=== PATIENT | male | born 1940 | race Caucasian/White ===

== ENCOUNTER 2018-04-14 13:33 | Inpatient (IN) | payer MEDICARE ==
[~2018-04-14] VITALS: Ht 172.7 cm; Wt 82.9 kg
[~2018-04-14 13:33] MED LIST: ALLO100 PO; APIX5TAB PO; ATOR20TA PO; ATOR20TA15 PO; CARV6.25 PO; COLA100C3 PO; FURO40TA PO; IRBE150T49 PO; SPIR25 PO
[2018-04-14 13:45] VITALS: BP 110/57; PULSE 103; RESP 25; TEMP 97.8; O2SAT 98
[2018-04-14] MEDS ORDERED: TORS20TA PO (13:57)
[2018-04-14] MEDS ORDERED: CHOL1TAB42 (13:57)
--- NOTE | 2018-04-14 14:00 | PD ---
HPI Chief Complaint: General Weakness Time Seen by Provider: 13:50 Travel History International Travel<30 days: No Contact w/Intl Traveler<30days: No Traveled to known affect area: No History of Present Illness HPI 77yo M with PMH of HTN, CVA with residual gait disturbance, cholecystectomy with complications here with c/o generalized weakness for 3 days. Pt has not been feeling well and had chills. [place] sob when he had chills but not right now. Denies any actual fever but axillary temp by EVAC was 100.4F. Denies any chest pain, sob, vomiting, abdominal pain, focal weakness or numbness. Pt has been feeling nauseous and not eating much. Pt had systolic in the 90s and was given 1000cc of IVF by EVAC and BP improved. PFSH Past Medical History Hx Anticoagulant Therapy: Yes (Eliquis) Atrial Fibrillation: Yes Anxiety: No Depression: No Heart Rhythm Problems: Yes (A-FIB) Cancer: No Cardiac Catheterization: Yes Cardiovascular Problems: Yes High Cholesterol: Yes Chemotherapy: No Chest Pain: No Congestive Heart Failure: Yes Cirrhosis: Yes Cerebrovascular Accident: Yes Diabetes: Yes Patient Takes Glucophage: No Diminished Hearing: No Endocrine: No Gastrointestinal Disorders: No Gout: Yes Genitourinary: No Hepatitis: No Hypertension: Yes Immune Disorder: No Implanted Vascular Access Dvce: No Medical other: Yes (stroke 3 or 4 years ago and with balance issues now) Musculoskeletal: No Neurologic: Yes Psychiatric: No Reproductive: No Respiratory: Yes (acute resp failure secondary to right pleural effusion ) Integumentary: Yes (jaundice with liver issues (cirrhosis dr. reynoso)) Immunizations Current: Yes Radiation Therapy: No Seizures: No Sickle Cell Disease: No Thyroid Disease: No Influenza Vaccination: No Past Surgical History Abdominal Surgery: Yes (cholecystectomy, exploratory, abdominal wall access drain/wound vac ) AICD: No Arteriovenous Shunt: No Cardiac Surgery: No Cholecystectomy: Yes Ear Surgery: No Endocrine Surgery: No Eye Surgery: Yes (bilateral cateracts) Genitourinary Surgery: No Insulin Pump: No Joint Replacement: No Neurologic Surgery: No Oral Surgery: Yes (tooth extractions) Pacemaker: No Thoracic Surgery: No Tonsillectomy: Yes Other Surgery: Yes Social History Alcohol Use: Yes (3-4 beers 2xs per week) Tobacco Use: No (Quit 1978) Substance Use: No Allergies-Medications (Allergen,Severity, Reaction): Coded Allergies: No Known Allergies (Unverified , 06/23/16) Reported Meds & Prescriptions Reported Meds & Active Scripts Active Reported Vitamin D-3 (Cholecalciferol) 2,000 Unit Tab Torsemide 20 Mg Tab 20 Mg PO DAILY Atorvastatin (Atorvastatin Calcium) 20 Mg Tab 20 Mg PO DAILY Aldactone (Spironolactone) 25 Mg Tab 25 Mg PO DAILY Avapro (Irbesartan) 150 Mg Tab 150 Mg PO DAILY Coreg (Carvedilol) 6.25 Mg Tab 25 Mg PO BID Eliquis (Apixaban) 5 Mg Tab 5 Mg PO BID Zyloprim (Allopurinol) 100 Mg Tab 300 Mg PO DAILY Review of Systems Except as stated in HPI: all other systems reviewed are Neg Physical Exam Narrative GENERAL: 77yo M in mild distress. SKIN: Focused skin assessment warm/dry. HEAD: Atraumatic. Normocephalic. EYES: Pupils equal and round. No scleral icterus. No injection or drainage. ENT: No nasal bleeding or discharge. Mucous membranes pink and moist. NECK: Trachea midline. No JVD. CARDIOVASCULAR: Regular rate and rhythm. No murmur appreciated. RESPIRATORY: No accessory muscle use. Clear to auscultation. Breath sounds equal bilaterally. GASTROINTESTINAL: Abdomen soft, non-tender, nondistended. No rebound tenderness or guarding. MUSCULOSKELETAL: No obvious deformities. No clubbing. No cyanosis. No edema. NEUROLOGICAL: Awake and alert. No obvious cranial nerve deficits. Motor grossly within normal limits in all extremities. Sensation intact. Normal speech. PSYCHIATRIC: Appropriate mood and affect; insight and judgment normal. Data Data Last Documented VS Vital Signs Date Time Temp Pulse Resp B/P (MAP) Pulse Ox O2 Delivery O2 Flow Rate FiO2 04/14/18 13:45 97.8 103 25 110/57 (74) 98 Orders Orders Blood Culture (04/14/18 13:50) Complete Blood Count With Diff (04/14/18 13:50) Basic Metabolic Panel (Bmp) (04/14/18 13:50) Prothrombin Time / Inr (Pt) (04/14/18 13:50) Act Partial Throm Time (Ptt) (04/14/18 13:50) Electrocardiogram (04/14/18 ) Chest, Single Ap (04/14/18 ) Lactic Acid Sepsis Protocol (04/14/18 13:50) Urinalysis - C+S If Indicated (04/14/18 13:50) Thyroid Stimulating Hormone (04/14/18 13:50) Magnesium (Mg) (04/14/18 13:50) Sodium Chlor 0.9% 1000 Ml Inj (Ns 1000 M (04/14/18 15:30) Vancomycin Inj (Vancomycin Inj) (04/14/18 15:45) Piperacil-Tazo 2.25 Gm Premix (Zosyn 2.2 (04/14/18 15:45) Admit Order (Ed Use Only) (04/14/18 16:19) Admit To Inpatient (04/14/18 ) Vital Signs (Adult) Q4H (04/14/18 16:21) Activity Oob Ad Chaya (04/14/18 16:21) Intake + Output DOV.QSHIFT (04/14/18 16:21) Diet Heart Healthy (04/14/18 Dinner) Sodium Chloride 0.9% Flush (Ns Flush) (04/14/18 16:30) Sodium Chloride 0.9% Flush (Ns Flush) (04/14/18 21:00) Comprehensive Metabolic Panel (04/15/18 06:00) Complete Blood Count With Diff (04/15/18 06:00) Naloxone Inj (Narcan Inj) (04/14/18 16:30) Docusate Sodium-Senna (Anjali-Colace) (04/14/18 21:00) Magnesium Hydroxide Liq (Milk Of Magnesi (04/14/18 16:30) Sennosides (Senokot) (04/14/18 16:30) Bisacodyl Supp (Dulcolax Supp) (04/14/18 16:30) Lactulose Liq (Lactulose Liq) (04/14/18 16:30) Inpatient Certification (04/14/18 ) Labs Laboratory Tests Test 04/14/18 13:54 04/14/18 14:09 04/14/18 16:24 White Blood Count 5.3 TH/MM3 Red Blood Count 2.93 MIL/MM3 Hemoglobin 8.9 GM/DL Hematocrit 26.9 % Mean Corpuscular Volume 91.6 FL Mean Corpuscular Hemoglobin 30.3 PG Mean Corpuscular Hemoglobin Concent 33.1 % Red Cell Distribution Width 15.3 % Platelet Count 94 TH/MM3 Mean Platelet Volume 8.3 FL Neutrophils (%) (Auto) 97.4 % Lymphocytes (%) (Auto) 1.5 % Monocytes (%) (Auto) 0.7 % Eosinophils (%) (Auto) 0.2 % Basophils (%) (Auto) 0.2 % Neutrophils # (Auto) 5.1 TH/MM3 Lymphocytes # (Auto) 0.1 TH/MM3 Monocytes # (Auto) 0.0 TH/MM3 Eosinophils # (Auto) 0.0 TH/MM3 Basophils # (Auto) 0.0 TH/MM3 CBC Comment AUTO DIFF Differential Comment AUTO DIFF CONFIRMED Toxic Granulation 1+ Dohle Bodies PRESENT Platelet Estimate LOW Platelet Morphology Comment NORMAL Prothrombin Time 14.1 SEC Prothromb Time International Ratio 1.4 RATIO Activated Partial Thromboplast Time 37.2 SEC Blood Urea Nitrogen 56 MG/DL Creatinine 3.04 MG/DL Random Glucose 134 MG/DL Calcium Level 7.5 MG/DL Magnesium Level 1.7 MG/DL Sodium Level 134 MEQ/L Potassium Level 3.8 MEQ/L Chloride Level 105 MEQ/L Carbon Dioxide Level 18.4 MEQ/L Anion Gap 11 MEQ/L Estimat Glomerular Filtration Rate 20 ML/MIN Lactic Acid Level 3.4 mmol/L 1.7 mmol/L Thyroid Stimulating Hormone 3rd Gen 1.200 uIU/ML Urine Color YELLOW Urine Turbidity HAZY Urine pH 5.0 Urine Specific [place] 1.011 Urine Protein 30 mg/dL Urine Glucose (UA) NEG mg/dL Urine Ketones NEG mg/dL Urine Occult Blood NEG Urine Nitrite NEG Urine Bilirubin NEG Urine Urobilinogen LESS THAN 2.0 MG/DL Urine Leukocyte Esterase NEG Urine RBC LESS THAN 1 /hpf Urine WBC 1 /hpf Urine Squamous Epithelial Cells 2 /hpf Urine Amorphous Sediment MOD Urine Bacteria OCC /hpf Urine Hyaline Casts 29 /lpf Urine Mucus FEW /lpf Microscopic Urinalysis Comment CULT NOT INDICATED MDM Medical Decision Making Medical Screen Exam Complete: Yes Emergency Medical Condition: Yes Interpretation(s) EKG: Sinus tachycardia at 100bpm. Normal axis. +PVC. No ST segment elevation or depression. Differential Diagnosis sepsis vs. dehydration vs. UTI vs. pneumonia Narrative Course 77yo M with generalized weakness and nausea for 3 days. As per EVAC, he was tachycardic with low grade fever of 100.4F. However, pt is afebrile here and HR , BP improved after NS IVF. Labs reviewed, no leukocytosis. H/H low at 8.9/ 26.9 which is baseline. However, positive for toxic granulation and dohle bodies which are sensitive for infectious process. BUN/creatinine is elevated at 56/3.04 which is more elevated than his baseline of 35/1.61. Lactic acid is also elevated at 3.4. Will empirically treat with broad spectrum antibiotics. TSH normal. UA showed occasional bacteria. +Hyaline casts. Pt likely dehydrated. CXR negative. Discussed with Dr. Ward and accepted to her service. Diagnosis Primary Impression: Lactic acid acidosis Additional Impression: Dehydration Admitting Information Admitting Physician Requests: Admit Bhavya Grier DO April 14, 2018 14:00
[2018-04-14 14:21] LABS: AUTOMATED NEUTROPHIL # 5.1 TH/MM3 (1.8-7.7); BASOPHIL % 0.2 % (0.0-2.0); EOSINOPHIL % 0.2 % (0.0-4.0); HEMATOCRIT 26.9 % (39.0-51.0); HEMOGLOBIN 8.9 GM/DL (13.0-17.0); LYMPH % 1.5 % (9.0-44.0); LYMPHOCYTE # 0.1 TH/MM3 (1.0-4.8); MEAN CELL VOLUME 91.6 FL (80.0-100.0); MEAN CORPUSCULAR HEMOGLOBIN 30.3 PG (27.0-34.0); MEAN CORPUSCULAR HGB CONC 33.1 % (32.0-36.0); MEAN PLATELET VOLUME 8.3 FL (7.0-11.0); MONO % 0.7 % (0.0-8.0); NEUT % 97.4 % (16.0-70.0); PLATELET COUNT 94 TH/MM3 (150-450); RED BLOOD COUNT 2.93 MIL/MM3 (4.50-5.90); RED CELL DISTRIBUTION WIDTH 15.3 % (11.6-17.2); WHITE BLOOD COUNT 5.3 TH/MM3 (4.0-11.0)
[2018-04-14 14:23] LABS: AMORPHOUS SEDIMENT, URINE MOD; BACTERIA, URINE OCC /hpf; BILIRUBIN, URINE NEG (NEG); BLOOD, URINE NEG (NEG); GLUCOSE,URINE NEG (NEG); HYALINE CAST, URINE 29 /lpf (RARE); KETONE, URINE NEG (NEG); MUCUS URINE FEW /lpf (OCC); NITRITE,URINE NEG (NEG); SQUAMOUS EPITHELIAL CELL URINE 2 /hpf (0-5); URINE COLOR YELLOW (YELLW/STRAW); URINE LEUKOCYTE ESTERASE NEG (NEG)
[2018-04-14 14:32] LABS: INTERNATIONAL NORMALIZED RATIO 1.4 RATIO; LACTIC ACID SEPSIS PROTOCOL 3.4 mmol/L (0.4-2.0); PROTHROMBIN TIME - PATIENT 14.1 SEC (9.8-11.6)
[2018-04-14 14:37] LABS: BICARBONATE 18.4 MEQ/L (21.0-32.0); CALCIUM 7.5 MG/DL (8.5-10.1); CREATININE 3.04 MG/DL (0.60-1.30); MAGNESIUM 1.7 MG/DL (1.5-2.5)
[2018-04-14 14:52] LABS: DOHLE BODIES PRESENT (NONE SEEN); TOXIC GRANULATION 1+ (NORMAL)
--- NOTE | 2018-04-14 15:04 | RADRPT ---
EXAM DATE: 04/14/2018 2:35 PM EDT AGE/SEX: 77 years / Male INDICATIONS: Shortness of breath CLINICAL DATA: This is the patient's initial encounter. Patient reports that signs and symptoms have been present for 1 day and indicates a pain score of 0/10. MEDICAL/SURGICAL HISTORY: Hypertension. Chronic obstructive pulmonary disease. . Thoracotomy. COMPARISON: Chest x-ray 07/14/2016. FINDINGS: A single AP view of the chest demonstrates the lungs to be symmetrically aerated without evidence of mass, infiltrate or effusion. The cardiomediastinal contours are unremarkable. Osseous structures a re intact. CONCLUSION: No acute disease. Electronically signed by: Esteban Marrero MD 04/14/2018 3:02 PM EDT
[2018-04-14] MEDS ORDERED: SODIUM CHLOR 0.9% 1000 ML INJ 1,000 ML IV ONE (15:30)
[2018-04-14] MEDS ORDERED: VANCOMYCIN INJ 1,251 MG in SODIUM CHLORID 0.9% 500 ML INJ 500 ML IV ONE (15:45)
[2018-04-14] MEDS ORDERED: PIPERACIL-TAZO 2.25 GM PREMIX 50 ML IV ONE (15:45)
[2018-04-14] MEDS ORDERED: LACTULOSE SYRUP 20 GM/30 ML CUP PO PRN (16:30)
[2018-04-14] MEDS ORDERED: SENNOSIDES 8.6 MG TAB PO PRN (16:30)
[2018-04-14] MEDS ORDERED: MAGNESIUM HYDROXIDE SUSP 30 ML CUP PO PRN (16:30)
[2018-04-14] MEDS ORDERED: BISACODYL 10 MG SUPP RECTAL PRN (16:30)
[2018-04-14] MEDS ORDERED: SODIUM CHLORIDE 0.9% FLUSH 10 ML FLUSH IV FLUSH PRN (16:30)
[2018-04-14] MEDS ORDERED: NALOXONE HCL 0.4 MG/ML AMP IV PUSH PRN (16:30)
--- NOTE | 2018-04-14 17:24 | HHI.HP ---
[facility] Joann Hollis MD Admission Diagnosis Sepsis, lactic acidosis Diagnoses: (1) Acute renal failure Diagnosis: Principal (2) Fever of unknown origin Diagnosis: Principal (3) Anemia Diagnosis: Principal (4) Thrombocytopenia Diagnosis: Principal Travel History International Travel<30 Days: No Contact w/Intl Traveler <30 Da: No Traveled to Known Affected Are: No History of Present Illness Mr. Levy is a 77-year-old male. He has CHF at baseline. He says for the past 3 days he has been having nausea and vomiting, fever, fatigue, chills, and sweats. He came into emergency department and when picked up by EMS was found to have a temperature 100.4. Etiology could be viral or bacterial. Bacterial etiology would be more suspect for gastroenteritis. Other findings include anemia and thrombocytopenia. He also has evidence of acute renal failure. Outpatient baseline status is not known for his creatinine level but past blood work shows that he ranges from 1.5-1.8 while in the hospital. Currently his creatinine level is 3.04. This acute renal failure could be related to dehydration but could also represent another pathology. He says he has not been eating or drinking well so this could be contributory to dehydration. No other complaints at this time. He has CHF at baseline and reports that this is usually under good control with his diuretics. He is not typically short of breath. He does not have CHF exacerbations in the recent past. He appears to have been taking his diuretic while having poor PO intake due to nausea. Review of Systems Constitutional: COMPLAINS OF: Fatigue, Fever, Chills Eyes: DENIES: Blurred vision, Diplopia, Eye inflammation, Eye pain Ears, nose, mouth, throat: COMPLAINS OF: Vertigo, DENIES: Hearing loss, Nasal discharge Respiratory: DENIES: Cough, Wheezing, Shortness of breath Cardiovascular: DENIES: Chest pain, Palpitations, Syncope Gastrointestinal: COMPLAINS OF: Nausea, Vomiting, DENIES: Abdominal pain, Black stools, Bloody stools Musculoskeletal: DENIES: Joint pain, Muscle aches, Stiffness Integumentary: DENIES: Abnormal pigmentation, Nail changes, Pruritus, Rash Hematologic/lymphatic: DENIES: Bruising, Lymphadenopathy Immunologic/allergic: DENIES: Eczema, Urticaria Neurologic: DENIES: Abnormal gait, Headache, Paresthesias Psychiatric: DENIES: Anxiety, Confusion, Hallucinations Past Family Social History Past Medical History Atrial fibrillation Chronic anticoagulation (Eliquis) Hyperlipidemia Congestive heart failure Cirrhosis History of CVA Diabetes mellitus type 2 Hypertension 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) Past Surgical History Cholecystectomy Drainage of abdominal abscess Abdominal wound VAC Bilateral cataract surgery Tonsillectomy Tooth extractions Reported Medications Reported Meds & Active Scripts Active Reported Vitamin D-3 (Cholecalciferol) 2,000 Unit Tab Torsemide 20 Mg Tab 20 Mg PO DAILY Atorvastatin (Atorvastatin Calcium) 20 Mg Tab 20 Mg PO DAILY Aldactone (Spironolactone) 25 Mg Tab 25 Mg PO DAILY Avapro (Irbesartan) 150 Mg Tab 150 Mg PO DAILY Coreg (Carvedilol) 6.25 Mg Tab 25 Mg PO BID Eliquis (Apixaban) 5 Mg Tab 5 Mg PO BID Zyloprim (Allopurinol) 100 Mg Tab 300 Mg PO DAILY Allergies: Coded Allergies: No Known Allergies (Unverified , 06/23/16) Active Ordered Medications Administered Medications Medications (Trade) Dose Ordered Sig/Abbie Route PRN Reason Start Time Stop Time Status Last Admin Dose Admin Vancomycin HCl 1251 mg/Sodium Chloride 512.51 ml @ 250 mls/ hr ONCE ONCE IV 04/14/18 15:45 04/14/18 17:47 04/14/18 16:21 Family History Coronary artery disease in father Coronary artery disease and diabetes mellitus type 2 in mother Social History Alcohol Use: Yes (3-4 beers 2xs per week) Tobacco Use: No (Quit 1978) Substance Use: No Physical Exam Vital Signs Vital Signs Date Time Temp Pulse Resp B/P (MAP) Pulse Ox O2 Delivery O2 Flow Rate FiO2 04/14/18 13:45 97.8 103 25 110/57 (74) 98 Physical Exam GENERAL: NAD, A&Ox3 HEAD: Normocephalic. NECK: Supple, trachea midline. No lymphadenopathy. EYES: No scleral icterus. No injection or drainage. CARDIOVASCULAR: Regular rate and rhythm without murmurs, gallops, or rubs. RESPIRATORY: Breath sounds equal bilaterally. No accessory muscle use. GASTROINTESTINAL: Abdomen soft, non-tender, nondistended. MUSCULOSKELETAL: No cyanosis, or edema. SKIN: Warm and dry. NEURO: No focal neurological deficitis. Laboratory Laboratory Tests Test 04/14/18 13:54 04/14/18 14:09 04/14/18 16:24 White Blood Count 5.3 Red Blood Count 2.93 Hemoglobin 8.9 Hematocrit 26.9 Mean Corpuscular Volume 91.6 Mean Corpuscular Hemoglobin 30.3 Mean Corpuscular Hemoglobin Concent 33.1 Red Cell Distribution Width 15.3 Platelet Count 94 Mean Platelet Volume 8.3 Neutrophils (%) (Auto) 97.4 Lymphocytes (%) (Auto) 1.5 Monocytes (%) (Auto) 0.7 Eosinophils (%) (Auto) 0.2 Basophils (%) (Auto) 0.2 Neutrophils # (Auto) 5.1 Lymphocytes # (Auto) 0.1 Monocytes # (Auto) 0.0 Eosinophils # (Auto) 0.0 Basophils # (Auto) 0.0 CBC Comment AUTO DIFF Differential Comment AUTO DIFF CONFIRMED Toxic Granulation 1+ Dohle Bodies PRESENT Platelet Estimate LOW Platelet Morphology Comment NORMAL Prothrombin Time 14.1 Prothromb Time International Ratio 1.4 Activated Partial Thromboplast Time 37.2 Blood Urea Nitrogen 56 Creatinine 3.04 Random Glucose 134 Calcium Level 7.5 Magnesium Level 1.7 Sodium Level 134 Potassium Level 3.8 Chloride Level 105 Carbon Dioxide Level 18.4 Anion Gap 11 Estimat Glomerular Filtration Rate 20 Lactic Acid Level 3.4 1.7 Thyroid Stimulating Hormone 3rd Gen 1.200 Urine Color YELLOW Urine Turbidity HAZY Urine pH 5.0 Urine Specific [place] 1.011 Urine Protein 30 Urine Glucose (UA) NEG Urine Ketones NEG Urine Occult Blood NEG Urine Nitrite NEG Urine Bilirubin NEG Urine Urobilinogen LESS THAN 2.0 Urine Leukocyte Esterase NEG Urine RBC LESS THAN 1 Urine WBC 1 Urine Squamous Epithelial Cells 2 Urine Amorphous Sediment MOD Urine Bacteria OCC Urine Hyaline Casts 29 Urine Mucus FEW Microscopic Urinalysis Comment CULT NOT INDICATED Date/Time Source Procedure Growth Status 04/14/18 13:59 Blood Peripheral Aerobic Blood Culture Pending Received 04/14/18 13:59 Blood Peripheral Anaerobic Blood Culture Pending Received Result Diagram: 04/14/18 1354 04/14/18 1354 Imaging Last Impressions Chest X-Ray 04/14/18 0000 Signed Impressions: CONCLUSION: No acute disease. Septic Shock Reassessment Septic shock perfusion: reassessment completed Caprini VTE Risk Assessment Caprini VTE Risk Assessment: No/Low Risk (score <= 1) Caprini Risk Assessment Model Point Value = 1 Point Value = 2 Point Value = 3 Point Value = 5 Age 41-60 Minor surgery BMI > 25 kg/m2 Swollen legs Varicose veins or History of unexplained or recurrent spontaneous Oral contraceptives or hormone replacement Sepsis (< 1 month) Serious lung disease, including pneumonia (< 1 month) Abnormal pulmonary function Acute myocardial infarction Congestive heart failure (< 1 month) History of inflammatory bowel disease Medical patient at bed rest Age 61-74 Arthroscopic surgery Major open surgery (> 45 min) Laparoscopic surgery (> 45 min) Malignancy Confined to bed (> 72 hours) Immobilizing plaster cast Central venous access Age >= 75 History of VTE Family history of VTE Factor V Leiden Prothrombin [id number] Lupus anticoagulant Anticardiolipin antibodies Elevated serum homocysteine Heparin-induced thrombocytopenia Other congenital or acquired thrombophilia Stroke (< 1 month) Elective arthroplasty Hip, pelvis, or leg fracture Acute spinal cord injury (< 1 month) Prophylaxis Regimen Total Risk Factor Score Risk Level Prophylaxis Regimen 0-1 Low Early ambulation 2 Moderate Order ONE of the following: *Sequential Compression Device (SCD) *Heparin 5000 units SQ BID 3-4 Higher Order ONE of the following medications: *Heparin 5000 units SQ TID *Enoxaparin/Lovenox 40 mg SQ daily (WT < 150 kg, CrCl > 30 mL/min) *Enoxaparin/Lovenox 30 mg SQ daily (WT < 150 kg, CrCl > 10-29 mL/min) *Enoxaparin/Lovenox 30 mg SQ BID (WT < 150 kg, CrCl > 30 mL/min) AND/OR *Sequential Compression Device (SCD) 5 or more Highest Order ONE of the following medications: *Heparin 5000 units SQ TID (Preferred with Epidurals) *Enoxaparin/Lovenox 40 mg SQ daily (WT < 150 kg, CrCl > 30 mL/min) *Enoxaparin/Lovenox 30 mg SQ daily (WT < 150 kg, CrCl > 10-29 mL/min) *Enoxaparin/Lovenox 30 mg SQ BID (WT < 150 kg, CrCl > 30 mL/min) AND *Sequential Compression Device (SCD) Assessment and Plan Problem List: (1) Thrombocytopenia ICD Code: D69.6 - Thrombocytopenia, unspecified (2) Fever of unknown origin ICD Code: R50.9 - Fever, unspecified (3) Anemia ICD Code: D64.9 - Anemia, unspecified (4) Acute renal failure ICD Code: N17.9 - Acute kidney failure, unspecified Assessment and Plan 77-year-old male admitted secondary to febrile illness with acute renal failure Sepsis vs. SIRS Follow on telemetry treat and screen for infections Follow vital signs IV Hydration Acute renal failure Dehydration Chronic kidney disease Acute renal failure could represent dehydration on top of chronic kidney disease IV hydration overnight cautiously given his CHF Recheck renal function in a.m. including creatinine Avoid nephrotoxins Fever of unknown origin Nausea/vomiting Viral versus bacterial A bacterial etiology could be related to a GI illness given the patient's nausea and vomiting Cover for bacterial illness with Flagyl and Rocephin Check influenza A and B IV hydration as above As needed Zofran for nausea or vomiting Anemia Thrombocytopenia This could be a viral reaction Monitor CBC Atrial fibrillation Continue Eliquis Follow on telemetry Hyperlipidemia Continue present treatment Follow as an outpatient Diabetes mellitus type 2 Follow blood sugars Insulin sliding scale Diabetic diet Congestive heart failure Follow closely as we are IV hydrating this patient Continue diuretic starting in a.m. 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 In the case of services not specified as inpatient-only, they are appropriately provided as inpatient services in accordance with the 2-midnight benchmark. Estimated LOS (days): 3 days is the estimated time the patient will need to remain in the hospital, assuming treatment plan goals are met and no additional complications. Post-Hospital Plan: Home Bradford Thomas MD April 14, 2018 17:23
[2018-04-14 18:00] VITALS: BP 98/52; PULSE 105; RESP 17; TEMP 98.2; O2SAT 98
[2018-04-14] MEDS ORDERED: GLUCAGON 1 MG/ML VIAL OTHER PRN (18:00)
[2018-04-14] MEDS ORDERED: DEXTROSE 50% IN WATER 50 ML VIAL(D50) IV PUSH PRN (18:00)
[2018-04-14] MEDS: LACTOBACILLUS ACIDOPHILUS TAB PO SCH (18:23)
[2018-04-14] MEDS: metroNIDAZOLE 500 MG INJ 100 ML IV SCH (18:50)
[2018-04-14] MEDS: SODIUM CHLOR 0.9% 1000 ML INJ 1,000 ML IV SCH (18:51)
[2018-04-14 20:00] VITALS: BP 90/54; PULSE 92; RESP 16; TEMP 98.8; O2SAT 97
[2018-04-14] MEDS: SODIUM CHLORIDE 0.9% FLUSH 10 ML FLUSH IV FLUSH SCH (20:02)
[2018-04-14] MEDS: APIXABAN 5 MG TABLET PO SCH (20:02)
[2018-04-14] MEDS: DOCUSATE SODIUM 50 MG/SENNA 8.6 MG TAB PO SCH (20:02)
[2018-04-14] MEDS: INSULIN ASPART SUPPLEMENTAL SCALE SQ SCH (20:06)
[2018-04-14] MEDS ORDERED: cefTRIAXone INJ 1,000 MG in SODIUM CHLORIDE 0.9% INJ 100 ML IV SCH (23:00)
[2018-04-15] VITALS (8 sets, daily range): BP systolic 92–121; BP diastolic 50–58; PULSE 60–93; RESP 15–18; TEMP 97.7–98; O2SAT 94–100
[2018-04-15] MEDS: metroNIDAZOLE 500 MG INJ 100 ML IV SCH ×2 (02:43→08:53)
[2018-04-15 06:30] LABS: BASOPHIL % 0.3 % (0.0-2.0); EOSINOPHIL # 0.1 TH/MM3 (0-0.4); EOSINOPHIL % 1.3 % (0.0-4.0); HEMATOCRIT 27.1 % (39.0-51.0); HEMOGLOBIN 9.2 GM/DL (13.0-17.0); LYMPH % 5.1 % (9.0-44.0); LYMPHOCYTE # 0.6 TH/MM3 (1.0-4.8); MEAN CELL VOLUME 89.7 FL (80.0-100.0); MEAN CORPUSCULAR HEMOGLOBIN 30.4 PG (27.0-34.0); MEAN CORPUSCULAR HGB CONC 33.9 % (32.0-36.0); MEAN PLATELET VOLUME 8.5 FL (7.0-11.0); MONO % 9.5 % (0.0-8.0); NEUT % 83.8 % (16.0-70.0); PLATELET COUNT 103 TH/MM3 (150-450); RED BLOOD COUNT 3.02 MIL/MM3 (4.50-5.90); RED CELL DISTRIBUTION WIDTH 15.6 % (11.6-17.2); WHITE BLOOD COUNT 10.8 TH/MM3 (4.0-11.0)
[2018-04-15 07:10] LABS: ALBUMIN 2.3 GM/DL (3.4-5.0); BICARBONATE 19.9 MEQ/L (21.0-32.0); CALCIUM 7.3 MG/DL (8.5-10.1); CALCIUM-PROTEIN CORRECTED 8.1 MG/DL (8.5-10.1); CREATININE 2.88 MG/DL (0.60-1.30); TOTAL BILIRUBIN ADULT 0.5 MG/DL (0.2-1.0); TOTAL PROTEIN 5.6 GM/DL (6.4-8.2)
[2018-04-15] MEDS: INSULIN ASPART SUPPLEMENTAL SCALE SQ SCH ×4 (07:28→19:30)
[2018-04-15] MEDS: LACTOBACILLUS ACIDOPHILUS TAB PO SCH ×3 (07:29→16:22)
[2018-04-15] MEDS: TORSEMIDE 20 MG TAB PO SCH (07:29)
[2018-04-15] MEDS: ATORVASTATIN 20 MG TAB PO SCH (07:29)
[2018-04-15] MEDS: DOCUSATE SODIUM 50 MG/SENNA 8.6 MG TAB PO SCH ×2 (07:30→19:23)
[2018-04-15] MEDS: APIXABAN 5 MG TABLET PO SCH ×2 (07:30→19:22)
[2018-04-15] MEDS: SODIUM CHLORIDE 0.9% FLUSH 10 ML FLUSH IV FLUSH SCH ×2 (07:30→19:19)
[2018-04-15] MEDS: ALLOPURINOL 300 MG TAB PO SCH (07:30)
[2018-04-15] MEDS: CARVEDILOL 6.25 MG TAB PO SCH ×2 (08:50→19:23)
[2018-04-15] MEDS ORDERED: LOSARTAN 50 MG TAB PO SCH (09:00)
[2018-04-15] MEDS ORDERED: SPIRONOLACTONE 25 MG TAB PO SCH (09:00)
--- NOTE | 2018-04-15 13:11 | EKG ---
Date Performed: 04/14/2018 Time Performed: 14:13:04 PTAGE: 77 years EKG: SINUS TACHYCARDIA WITH FREQUENT ECTOPIC PREMATURE COMPLEXES LOW QRS VOLTAGE IN PRECORDIAL L MIREYA NONSPECIFIC T-WAVE ABNORMALITY ABNORMAL RHYTHM ECG Compared to PREVIOUS TRACING , the PVCs are new, QRS voltage is lower in the precordial leads, and th e ST-T changes are new. PREVIOUS TRACIN07/06/2016 12.28 DOCTOR: Sonny Reid Interpretating Date/Time 04/15/2018 13:10:27
--- NOTE | 2018-04-15 13:17 | HHI.PR ---
Subjective Remarks Nursing denies any deterioration since last night. Patient says he does not think he has improved much since yesterday. He does report tolerating clear liquid intake last night but this morning upon trying to eat some turkey he says he feels like he has a lot of gas and has some intermittent nausea but no vomiting. Objective Vital Signs Date Time Temp Pulse Resp B/P (MAP) Pulse Ox O2 Delivery O2 Flow Rate FiO2 04/15/18 12:00 97.7 60 16 99/50 (66) 99 04/15/18 08:00 97.9 71 17 104/55 (71) 100 04/15/18 04:32 97.7 82 18 92/54 (67) 94 04/15/18 04:00 82 04/15/18 00:18 82 04/15/18 00:08 98.0 86 18 92/52 (65) 97 04/14/18 20:00 98.8 92 16 90/54 (66) 97 04/14/18 18:00 98.2 105 17 98/52 (67) 98 04/14/18 13:45 97.8 103 25 110/57 (74) 98 I/O 04/14/18 04/14/18 04/14/18 04/15/18 04/15/18 04/15/18 07:00 15:00 23:00 07:00 15:00 23:00 Intake Total 1610 ml 480 ml Output Total 50 ml Balance 1560 ml 480 ml Intake Oral 360 ml 480 ml IV Total 1250 ml Output Urine Total 50 ml # Voids 3 # Bowel Movements 0 1 Result Diagram: 04/15/18 0547 04/15/18 0547 Objective Remarks Abdomen is soft, nontender, nondistended, Sitting up in his chair, awake and alert, no acute distress A/P Assessment and Plan 77-year-old male admitted secondary to febrile illness with acute renal failure Sepsis IV fluids, blood cultures in process, antibiotics as below Bacteremia Appears to be Klebsiella, consulting infectious disease, Acute renal failure Likely secondary to sepsis and dehydration Improving with IV fluids, continue cautious hydration given CHF history Nausea but no vomiting Continue Rocephin and Flagyl De-escalate diet down to full liquid Thrombocytopenia This could be a viral reaction or secondary to sepsis Monitor CBC Atrial fibrillation Continue Eliquis Follow on telemetry Hyperlipidemia Continue present treatment Follow as an outpatient Diabetes mellitus type 2 Follow blood sugars Insulin sliding scale Diabetic diet Congestive heart failure Follow closely as we are IV hydrating this patient Continue home diuretic Cirrhosis History of CVA 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) No exacerbations Supportive care Follow clinically DVT prophylaxis SCDs Anticoagulation reported for now given patient's anemia and renal failure Ceferino Heredia MD April 15, 2018 13:17
--- NOTE | 2018-04-15 14:42 | PD.CONS ---
History of Present Illness Service Infectious disease Consult Requested By Dr Heredia Reason for Consult Evaluate patient with gram-negative doug bacteremia Primary Care Physician Joann Hollis MD Diagnoses: History of Present Illness Patient seen and examined. Records reviewed. Patient is a 77-year-old male, presented to the hospital for further evaluation of nausea, abdominal discomfort, and weakness. His problem started about 4 days ago when he had an acute episode of vomiting. The following day he felt nauseated, and did not really feel like eating much or drinking much. His symptoms persisted, and 1 day prior to admission he started experiencing some abdominal discomfort. He did not have any further vomiting, and he has not had any diarrhea. He had noticed decreased any his urination because of poor p.o. intake. He has not noted any hematuria or any odor when he urinates. Denies any back pain. He denies any respiratory complaint. Because of the persistent symptoms, he called the ambulance and he was taken to the hospital. He had a fever in [facility]. His WBC is normal. 2 blood cultures were done in the ED and they are now reported as growing gram-negative doug. Patient last saw his primary care physician about 2 weeks ago, and everything looked okay at that time. Infectious disease consultation has been requested to evaluate the patient. Review of Systems Constitutional: COMPLAINS OF: Fever, Chills, Dizziness, Change in appetite, DENIES: Night Sweats Eyes: DENIES: Eye pain Ears, nose, mouth, throat: DENIES: Nasal discharge, Oral lesions, Throat pain, Ear Pain, Sinus Pain Respiratory: DENIES: Cough, Shortness of breath Cardiovascular: DENIES: Chest pain, Palpitations, Syncope, Dyspnea on Exertion Gastrointestinal: COMPLAINS OF: Abdominal pain, Nausea, Vomiting, Anorexia, DENIES: Diarrhea, Difficulty Swallowing Genitourinary: DENIES: Urgency, Hematuria, Dysuria Musculoskeletal: DENIES: Joint pain, Joint Swelling, Back pain Integumentary: DENIES: Rash Neurologic: COMPLAINS OF: Poor Balance, DENIES: Headache, Localized weakness Psychiatric: DENIES: Hallucinations Past Family Social History Allergies: Coded Allergies: No Known Allergies (Unverified , 06/23/16) Past Medical History Atrial fibrillation Chronic anticoagulation (Eliquis) Hyperlipidemia Congestive heart failure Cirrhosis History of CVA Diabetes mellitus type 2 Hypertension 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) Empyema Past Surgical History Cholecystectomy Drainage of abdominal abscess Abdominal wound VAC Bilateral cataract surgery Tonsillectomy Tooth extractions Surgery for empyema Active Ordered Medications Current Medications Medications (Trade) Dose Ordered Sig/Abbie Route Start Time Stop Time Status Last Admin (NS Flush) 2 ml UNSCH PRN IV FLUSH 04/14/18 16:30 (NS Flush) 2 ml BID IV FLUSH 04/14/18 21:00 04/14/18 20:02 (Narcan Inj) 0.4 mg UNSCH PRN IV PUSH 04/14/18 16:30 (Anjali-Colace) 1 tab BID PO 04/14/18 21:00 04/15/18 07:30 (Milk Of Magnesia Liq) 30 ml Q12H PRN PO 04/14/18 16:30 (Senokot) 17.2 mg Q12H PRN PO 04/14/18 16:30 (Dulcolax Supp) 10 mg DAILY PRN RECTAL 04/14/18 16:30 (Lactulose Liq) 30 ml DAILY PRN PO 04/14/18 16:30 Sodium Chloride 1,000 ml @ 42 mls/hr [id number] IV 04/14/18 17:30 04/14/18 18:51 (D50w (Vial) Inj) 50 ml UNSCH PRN IV PUSH 04/14/18 18:00 (Glucagon Inj) 1 mg UNSCH PRN OTHER 04/14/18 18:00 (NovoLOG SUPPLEMENTAL SCALE) 1 ACHS SLIDING SCALE SQ 04/14/18 21:00 04/15/18 11:55 Metronidazole 100 ml @ 100 mls/hr Q8H IV 04/14/18 18:00 04/15/18 08:53 Ceftriaxone Sodium 1000 mg/ Sodium Chloride 100 ml @ 200 mls/hr Q24H IV 04/14/18 23:00 04/14/18 23:31 (Lactinex) 1 tab TID PO 04/14/18 18:00 04/15/18 11:54 (Zofran Odt) 4 mg Q6HR PRN PO 04/14/18 18:00 (Zyloprim) 300 mg DAILY PO 04/15/18 09:00 04/15/18 07:30 (Eliquis) 5 mg BID PO 04/14/18 21:00 04/15/18 07:30 (Lipitor) 20 mg DAILY PO 04/15/18 09:00 04/15/18 07:29 (Demadex) 20 mg DAILY PO 04/15/18 09:00 04/15/18 07:29 (Coreg) 6.25 mg Q12HR PO 04/15/18 09:00 Family History Noncontributory Social History Lives with daughter Ex smoker Drinks 3-4 beers twice a week Denies illicit drugs Physical Exam Vital Signs Vital Signs Date Time Temp Pulse Resp B/P (MAP) Pulse Ox O2 Delivery O2 Flow Rate FiO2 04/15/18 12:00 97.7 60 16 99/50 (66) 99 04/15/18 08:00 97.9 71 17 104/55 (71) 100 04/15/18 04:32 97.7 82 18 92/54 (67) 94 04/15/18 04:00 82 04/15/18 00:18 82 04/15/18 00:08 98.0 86 18 92/52 (65) 97 04/14/18 20:00 98.8 92 16 90/54 (66) 97 04/14/18 18:00 98.2 105 17 98/52 (67) 98 Physical Exam GENERAL: Patient is a well-nourished, well-developed male, awake and alert, not in respiratory distress. SKIN: Warm and dry. Has purpuric areas and ecchymoses in both UE HEAD: Atraumatic. Normocephalic. No temporal wasting, or tenderness. EYES: [place] conjunctiva. No petechia or hemorrhage. Pupils equal, round and reactive to light. Extraocular movements full and intact. No scleral icterus. No injection or drainage. EARS, NOSE AND THROAT: Nose without bleeding or purulent nasal discharge. No sinus tenderness. Mucous membranes pink and moist. No oral lesions noted. . NECK: Trachea midline. Supple and not tender, no meningeal signs CARDIOVASCULAR: Regular rate and rhythm. No murmurs, rubs or gallops heard RESPIRATORY: Clear to auscultation. Breath sounds equal bilaterally. No rales , wheezing or rhonchi ABDOMEN: Globular, distended, non-tender, bowel sounds present and normoactive. No guarding. No rebound. Scar C/W surgical history EXTREMITIES: No clubbing, cyanosis, or edema. No joint effusion, has good ROM. No calf tenderness. Has a large eschar on his distal R leg, no evidence of infection. NEUROLOGICAL: Awake and alert. Cranial nerves grossly intact. Motor grossly within normal limits. PSYCHIATRIC: Normal affect, calm and cooperative. LINE: No evidence of infection Laboratory Laboratory Tests Test 04/14/18 16:24 04/15/18 05:47 Lactic Acid Level 1.7 White Blood Count 10.8 Red Blood Count 3.02 Hemoglobin 9.2 Hematocrit 27.1 Mean Corpuscular Volume 89.7 Mean Corpuscular Hemoglobin 30.4 Mean Corpuscular Hemoglobin Concent 33.9 Red Cell Distribution Width 15.6 Platelet Count 103 Mean Platelet Volume 8.5 Neutrophils (%) (Auto) 83.8 Lymphocytes (%) (Auto) 5.1 Monocytes (%) (Auto) 9.5 Eosinophils (%) (Auto) 1.3 Basophils (%) (Auto) 0.3 Neutrophils # (Auto) 9.0 Lymphocytes # (Auto) 0.6 Monocytes # (Auto) 1.0 Eosinophils # (Auto) 0.1 Basophils # (Auto) 0.0 CBC Comment DIFF FINAL Differential Comment Blood Urea Nitrogen 53 Creatinine 2.88 Random Glucose 118 Total Protein 5.6 Albumin 2.3 Calcium Level 7.3 Alkaline Phosphatase 91 Aspartate Amino Transf (AST/SGOT) 104 Alanine Aminotransferase (ALT/SGPT) 90 Total Bilirubin 0.5 Sodium Level 138 Potassium Level 3.8 Chloride Level 109 Carbon Dioxide Level 19.9 Anion Gap 9 Estimat Glomerular Filtration Rate 21 Protein Corrected Calcium 8.1 Date/Time Source Procedure Growth Status 04/14/18 13:59 Blood Peripheral Aerobic Blood Culture - Preliminary Gram Negative Doug Resulted 04/14/18 13:59 Anaerobic Blood Culture - Preliminary Gram Negative Doug Resulted Result Diagram: 04/15/18 0547 04/15/18 0547 Imaging RADIOLOGY STUDIES/FILMS REVIEWED Chest X-Ray 04/14/18 0000 Signed Impressions: CONCLUSION: No acute disease. Assessment and Plan Assessment and Plan IMPRESSION Klebsiella sepsis source? - has elevated LFT, ?biliary source - has not impressive, ?, with obstruction Renal insufficiency, worse, due to poor po intake and sepsis Hx Empyema Prior cholecystectomy RECOMMENDATION Abdominal US to look at biliary tree and kidneys IV Zosyn Likely will need CT A/P Repeat BC Follow C/S Monitor progress I will determine course of Abx depending on results of work-up I will follow along with you Thank you for this consultation Discussed Condition With Explained plan to the patient Elif Springer MD April 15, 2018 14:42
[2018-04-15] MEDS: ONDANSETRON ODT 4 MG TAB PO PRN (16:22)
[2018-04-15] MEDS: SODIUM CHLOR 0.9% 1000 ML INJ 1,000 ML IV SCH (16:33)
[2018-04-15] MEDS: PIPERACIL-TAZO 2.25 GM PREMIX 50 ML IV SCH (21:33)
[2018-04-16] VITALS (8 sets, daily range): BP systolic 101–120; BP diastolic 57–64; PULSE 63–97; RESP 15–18; TEMP 97.1–98; O2SAT 92–99
[2018-04-16] MEDS: PIPERACIL-TAZO 2.25 GM PREMIX 50 ML IV SCH ×4 (03:37→22:56)
[2018-04-16 07:44] LABS: ALBUMIN 2.3 GM/DL (3.4-5.0); AST (GOT) 62 U/L (15-37); BICARBONATE 21.2 MEQ/L (21.0-32.0); BLOOD UREA NITROGEN 45 MG/DL (7-18); CALCIUM 7.9 MG/DL (8.5-10.1); CHLORIDE 109 MEQ/L (98-107); CREATININE 2.28 MG/DL (0.60-1.30); GLOMERULAR FILTRATION RATE 28 ML/MIN (>89); GLUCOSE,RANDOM 148 MG/DL (74-106); SODIUM (NA) 139 MEQ/L (136-145)
[2018-04-16 07:48] LABS: ALKALINE PHOSPHATASE 92 U/L (45-117); ALT (GPT) 70 U/L (12-78); TOTAL BILIRUBIN ADULT 0.5 MG/DL (0.2-1.0); TOTAL PROTEIN 5.8 GM/DL (6.4-8.2)
[2018-04-16] MEDS: SODIUM CHLORIDE 0.9% FLUSH 10 ML FLUSH IV FLUSH SCH ×2 (07:50→19:51)
[2018-04-16] MEDS: LACTOBACILLUS ACIDOPHILUS TAB PO SCH ×3 (07:51→16:49)
[2018-04-16] MEDS: APIXABAN 5 MG TABLET PO SCH ×2 (07:51→19:51)
[2018-04-16] MEDS: ALLOPURINOL 300 MG TAB PO SCH (07:51)
[2018-04-16] MEDS: TORSEMIDE 20 MG TAB PO SCH (07:51)
[2018-04-16] MEDS: CARVEDILOL 6.25 MG TAB PO SCH ×2 (07:52→19:51)
[2018-04-16] MEDS: ATORVASTATIN 20 MG TAB PO SCH (07:53)
[2018-04-16] MEDS: INSULIN ASPART SUPPLEMENTAL SCALE SQ SCH ×4 (07:53→19:53)
[2018-04-16] MEDS: DOCUSATE SODIUM 50 MG/SENNA 8.6 MG TAB PO SCH ×2 (07:53→19:51)
--- NOTE | 2018-04-16 11:10 | HHI.IDPN ---
Subjective Subjective Remarks Patient is a 77-year-old male, presented to the hospital for further evaluation of nausea, abdominal discomfort, and weakness. His problem started about 4 days ago when he had an acute episode of vomiting. The following day he felt nauseated, and did not really feel like eating much or drinking much. His symptoms persisted, and 1 day prior to admission he started experiencing some abdominal discomfort. He did not have any further vomiting, and he has not had any diarrhea. He had noticed decreased any his urination because of poor p.o. intake. He has not noted any hematuria or any odor when he urinates. Denies any back pain. He denies any respiratory complaint. Because of the persistent symptoms, he called the ambulance and he was taken to the hospital. He had a fever in [place]. His WBC is normal. 2 blood cultures were done in the ED and they are now reported as growing gram-negative johan. Patient last saw his primary care physician about 2 weeks ago, and everything looked okay at that time. Infectious disease consultation has been requested to evaluate the patient. Notes reviewed Temps ok Just had his abd US done Ate his breakfast ok, no N/V No abdominal discomfort this morning BC with Kleb oxytoca Creatinine lower LFT better Antibiotics Zosyn Current Medications Medications (Trade) Dose Ordered Sig/Abbie Route Start Time Stop Time Status Last Admin (NS Flush) 2 ml UNSCH PRN IV FLUSH 04/14/18 16:30 (NS Flush) 2 ml BID IV FLUSH 04/14/18 21:00 04/14/18 20:02 (Narcan Inj) 0.4 mg UNSCH PRN IV PUSH 04/14/18 16:30 (Anjali-Colace) 1 tab BID PO 04/14/18 21:00 04/15/18 07:30 (Milk Of Magnesia Liq) 30 ml Q12H PRN PO 04/14/18 16:30 (Senokot) 17.2 mg Q12H PRN PO 04/14/18 16:30 (Dulcolax Supp) 10 mg DAILY PRN RECTAL 04/14/18 16:30 (Lactulose Liq) 30 ml DAILY PRN PO 04/14/18 16:30 Sodium Chloride 1,000 ml @ 42 mls/hr [id number] IV 04/14/18 17:30 5/27/18 16:33 (D50w (Vial) Inj) 50 ml UNSCH PRN IV PUSH 04/14/18 18:00 (Glucagon Inj) 1 mg UNSCH PRN OTHER 04/14/18 18:00 (NovoLOG SUPPLEMENTAL SCALE) 1 ACHS SLIDING SCALE SQ 04/14/18 21:00 04/16/18 07:53 (Lactinex) 1 tab TID PO 04/14/18 18:00 04/16/18 07:51 (Zofran Odt) 4 mg Q6HR PRN PO 04/14/18 18:00 04/15/18 16:22 (Zyloprim) 300 mg DAILY PO 04/15/18 09:00 04/16/18 07:51 (Eliquis) 5 mg BID PO 04/14/18 21:00 04/16/18 07:51 (Lipitor) 20 mg DAILY PO 04/15/18 09:00 04/16/18 07:53 (Demadex) 20 mg DAILY PO 04/15/18 09:00 04/16/18 07:51 (Coreg) 6.25 mg Q12HR PO 04/15/18 09:00 04/16/18 07:52 Piperacillin Sod/ Tazobactam Sod 50 ml @ 100 mls/hr Q6H IV 04/15/18 22:00 04/16/18 09:14 Lines PIV no evidence of infection Past Medical History Atrial fibrillation Chronic anticoagulation (Eliquis) Hyperlipidemia Congestive heart failure Cirrhosis History of CVA Diabetes mellitus type 2 Hypertension 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) Empyema Past Surgical History Cholecystectomy Drainage of abdominal abscess Abdominal wound VAC Bilateral cataract surgery Tonsillectomy Tooth extractions Surgery for empyema Allergies: Coded Allergies: No Known Allergies (Unverified , 06/23/16) Objective . Vital Signs Date Time Temp Pulse Resp B/P (MAP) Pulse Ox O2 Delivery O2 Flow Rate FiO2 04/16/18 08:00 98.0 71 16 120/64 (82) 98 04/16/18 04:00 97.5 97 15 120/62 (81) 92 04/16/18 03:30 78 04/16/18 00:00 81 04/16/18 00:00 97.9 92 15 115/60 (78) 93 04/15/18 20:00 93 04/15/18 20:00 97.7 91 15 111/54 (73) 98 04/15/18 16:00 97.8 85 18 121/58 (79) 99 04/15/18 12:00 97.7 60 16 99/50 (66) 99 . Laboratory Tests Test 04/14/18 13:54 04/15/18 05:47 White Blood Count 5.3 TH/MM3 10.8 TH/MM3 Red Blood Count 2.93 MIL/MM3 3.02 MIL/MM3 Hemoglobin 8.9 GM/DL 9.2 GM/DL Hematocrit 26.9 % 27.1 % Mean Corpuscular Volume 91.6 FL 89.7 FL Mean Corpuscular Hemoglobin 30.3 PG 30.4 PG Mean Corpuscular Hemoglobin Concent 33.1 % 33.9 % Red Cell Distribution Width 15.3 % 15.6 % Platelet Count 94 TH/MM3 103 TH/MM3 Mean Platelet Volume 8.3 FL 8.5 FL Neutrophils (%) (Auto) 97.4 % 83.8 % Lymphocytes (%) (Auto) 1.5 % 5.1 % Monocytes (%) (Auto) 0.7 % 9.5 % Eosinophils (%) (Auto) 0.2 % 1.3 % Basophils (%) (Auto) 0.2 % 0.3 % Neutrophils # (Auto) 5.1 TH/MM3 9.0 TH/MM3 Lymphocytes # (Auto) 0.1 TH/MM3 0.6 TH/MM3 Monocytes # (Auto) 0.0 TH/MM3 1.0 TH/MM3 Eosinophils # (Auto) 0.0 TH/MM3 0.1 TH/MM3 Basophils # (Auto) 0.0 TH/MM3 0.0 TH/MM3 CBC Comment AUTO DIFF DIFF FINAL Differential Comment AUTO DIFF CONFIRMED Toxic Granulation 1+ Dohle Bodies PRESENT Platelet Estimate LOW Platelet Morphology Comment NORMAL Laboratory Tests Test 04/14/18 13:54 04/14/18 16:24 04/15/18 05:47 04/16/18 06:30 Blood Urea Nitrogen 56 MG/DL 53 MG/DL 45 MG/DL Creatinine 3.04 MG/DL 2.88 MG/DL 2.28 MG/DL Random Glucose 134 MG/DL 118 MG/DL 148 MG/DL Calcium Level 7.5 MG/DL 7.3 MG/DL 7.9 MG/DL Magnesium Level 1.7 MG/DL Sodium Level 134 MEQ/L 138 MEQ/L 139 MEQ/L Potassium Level 3.8 MEQ/L 3.8 MEQ/L 4.1 MEQ/L Chloride Level 105 MEQ/L 109 MEQ/L 109 MEQ/L Carbon Dioxide Level 18.4 MEQ/L 19.9 MEQ/L 21.2 MEQ/L Anion Gap 11 MEQ/L 9 MEQ/L 9 MEQ/L Estimat Glomerular Filtration Rate 20 ML/MIN 21 ML/MIN 28 ML/MIN Lactic Acid Level 3.4 mmol/L 1.7 mmol/L Thyroid Stimulating Hormone 3rd Gen 1.200 uIU/ML Total Protein 5.6 GM/DL 5.8 GM/DL Albumin 2.3 GM/DL 2.3 GM/DL Alkaline Phosphatase 91 U/L 92 U/L Aspartate Amino Transf (AST/SGOT) 104 U/L 62 U/L Alanine Aminotransferase (ALT/SGPT) 90 U/L 70 U/L Total Bilirubin 0.5 MG/DL 0.5 MG/DL Protein Corrected Calcium 8.1 MG/DL Microbiology Date/Time Source Procedure Growth Status 04/15/18 14:55 Blood Peripheral Aerobic Blood Culture Pending Received 04/15/18 14:55 Blood Peripheral Anaerobic Blood Culture Pending Received 04/15/18 14:50 Blood Peripheral Aerobic Blood Culture Pending Received 04/15/18 14:50 Blood Peripheral Anaerobic Blood Culture Pending Received 04/14/18 13:59 Blood Peripheral Aerobic Blood Culture - Preliminary Klebsiella Oxytoca Resulted 04/14/18 13:59 Anaerobic Blood Culture - Preliminary Klebsiella Oxytoca Resulted 04/14/18 13:54 Blood Peripheral Aerobic Blood Culture - Preliminary Klebsiella Oxytoca Resulted 04/14/18 13:54 Anaerobic Blood Culture - Preliminary Klebsiella Oxytoca Resulted Imaging Last 72 hours Impressions Chest X-Ray 04/14/18 0000 Signed Impressions: CONCLUSION: No acute disease. Physical Exam GENERAL: awake and alert, not in respiratory distress. SKIN: Warm and dry. Has purpuric areas and ecchymoses in both UE HEAD: Atraumatic. Normocephalic. No temporal wasting, or tenderness. EYES: [place] conjunctiva. No petechia or hemorrhage. Pupils equal, round and reactive to light. Extraocular movements full and intact. No scleral icterus. No injection or drainage. EARS, NOSE AND THROAT: Nose without bleeding or purulent nasal discharge. No sinus tenderness. Mucous membranes pink and moist. No oral lesions noted. . NECK: Trachea midline. Supple and not tender, no meningeal signs CARDIOVASCULAR: Regular rate and rhythm. No murmurs, rubs or gallops heard RESPIRATORY: Clear to auscultation. Breath sounds equal bilaterally. No rales , wheezing or rhonchi ABDOMEN: Globular, distended, non-tender, bowel sounds present and normoactive. No guarding. No rebound. Scar C/W surgical history EXTREMITIES: No clubbing, cyanosis, or edema. No joint effusion, has good ROM. No calf tenderness. Has a large eschar on his distal R leg, no evidence of infection. NEUROLOGICAL: Awake and alert. Cranial nerves grossly intact. Motor grossly within normal limits. PSYCHIATRIC: Normal affect, calm and cooperative. LINE: No evidence of infection Assessment & Plan Remarks IMPRESSION Klebsiella sepsis source? - has elevated LFT, ?biliary source - has not impressive, ?, with obstruction Renal insufficiency, worse, due to poor po intake and sepsis Hx Empyema Prior cholecystectomy RECOMMENDATION Abdominal US to look at biliary tree and kidneys Continue IV Zosyn Follow C/S Monitor progress Explained plan to patient and his son Elif Springer Maryann BAILEY April 16, 2018 11:10
--- NOTE | 2018-04-16 12:18 | RADRPT ---
EXAM DATE: 04/16/2018 12:01 PM EDT AGE/SEX: 77 years / Male INDICATIONS: Sepsis. Evaluate biliary tree and kidneys for obstruction. CLINICAL DATA: This is the patient's sequela encounter. Patient reports that signs and symptoms have been present for 1 day and indicates a pain score of 2/10. MEDICAL/SURGICAL HISTORY: . CVA. Afib. Hypertension. . Coronary stent. Tonsillectomy. Card iac catheterization. Cholecystectomy. COMPARISON: No prior [place] exams available for comparison. No external comparison. MEASUREMENTS: Liver:__ 12.3 cm. Common Bile Duct:___ 6mm. Right Kidney:___11.7 x 5.5 x 7.3 . Left Kidney:___10.1 x 4.6 x 6.1 . Spleen:___11.3 . Aorta: The mid portion measures 1.5 cm maximal. FINDINGS: Liver: Normal echotexture without focal lesion or ductal dilatation. Portal Vein: Hepatopedal flow seen in portal vein. Common Duct: No intralumincal mass or stone visualized. Gallbladder: Surgically Absent. Pancreas: Not well visualized. Right Kidney: No mass or hydronephrosis. Borderline echogenic. Small simple cyst lower pole measures 13 x 12 x 11 mm. Left Kidney: No mass or hydronephrosis. Borderline echogenic. Ascites: None Pleural Effusion: None Spleen: No focal lesion. Aorta: Non aneurysmal. IVC: Within normal limits CONCLUSION: 1. Status post cholecystectomy. 2. Small right renal cyst. 3. Kidneys are borderline echogenic which can be seen with medical renal disease. 4. No intrahepatic biliary dilatation. 5. Pancreas not well seen. Electronically signed by: Teja aSm MD 04/16/2018 12:17 PM EDT
--- NOTE | 2018-04-16 12:21 | HHI.PR ---
Subjective Remarks Nursing denies any deterioration since last night. Patient feels like he is much improved since yesterday. Tolerating p.o. intake well with no dyspeptic symptoms today unlike yesterday. Objective Vital Signs Date Time Temp Pulse Resp B/P (MAP) Pulse Ox O2 Delivery O2 Flow Rate FiO2 04/16/18 08:00 98.0 71 16 120/64 (82) 98 04/16/18 04:00 97.5 97 15 120/62 (81) 92 04/16/18 03:30 78 04/16/18 00:00 81 04/16/18 00:00 97.9 92 15 115/60 (78) 93 04/15/18 20:00 93 04/15/18 20:00 97.7 91 15 111/54 (73) 98 04/15/18 16:00 97.8 85 18 121/58 (79) 99 I/O 04/15/18 04/15/18 04/15/18 04/16/18 04/16/18 04/16/18 07:00 15:00 23:00 07:00 15:00 23:00 Intake Total 680 ml 890 ml 0 ml Balance 680 ml 890 ml 0 ml Intake Oral 480 ml 840 ml 0 ml IV Total 200 ml 50 ml # Voids 3 5 3 # Bowel Movements 1 2 0 Result Diagram: 04/15/18 0547 04/16/18 0630 Objective Remarks Lungs are clear bilaterally Abdomen is soft, slightly firm, nontender Sitting up in bed, awake, alert, no acute distress A/P Assessment and Plan 77-year-old male admitted secondary to febrile illness with acute renal failure Sepsis Sepsis element resolved Bacteremia Klebsiella, infectious disease following, switched to Zosyn Nausea but no vomiting Improving Continue Rocephin and Flagyl De-escalate diet down to full liquid Abdominal ultrasound results pending Acute renal failure Likely secondary to sepsis and dehydration Improving with IV fluids, continue cautious hydration given CHF history Thrombocytopenia This could be a viral reaction or secondary to sepsis Monitor CBC Atrial fibrillation Continue Eliquis Follow on telemetry Hyperlipidemia Continue present treatment Follow as an outpatient Diabetes mellitus type 2 Follow blood sugars Insulin sliding scale Diabetic diet Congestive heart failure Follow closely as we are IV hydrating this patient Continue home diuretic Cirrhosis History of CVA 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) No exacerbations Supportive care Follow clinically DVT prophylaxis SCDs Anticoagulation reported for now given patient's anemia and renal failure Ceferino Heredia MD April 16, 2018 12:21
[2018-04-16] MEDS: SODIUM CHLOR 0.9% 1000 ML INJ 1,000 ML IV SCH (16:49)
[2018-04-17] VITALS (7 sets, daily range): BP systolic 109–130; BP diastolic 55–80; PULSE 59–90; RESP 18–20; TEMP 97.1–98.1; O2SAT 95–100
[2018-04-17] MEDS: PIPERACIL-TAZO 2.25 GM PREMIX 50 ML IV SCH ×4 (04:23→21:14)
[2018-04-17] MEDS: SODIUM CHLORIDE 0.9% FLUSH 10 ML FLUSH IV FLUSH SCH ×2 (07:02→21:15)
[2018-04-17] MEDS: INSULIN ASPART SUPPLEMENTAL SCALE SQ SCH ×4 (07:02→21:00)
[2018-04-17] MEDS: ATORVASTATIN 20 MG TAB PO SCH (07:24)
[2018-04-17] MEDS: TORSEMIDE 20 MG TAB PO SCH (07:24)
[2018-04-17] MEDS: LACTOBACILLUS ACIDOPHILUS TAB PO SCH ×3 (07:24→16:30)
[2018-04-17] MEDS: ALLOPURINOL 300 MG TAB PO SCH (07:24)
[2018-04-17] MEDS: CARVEDILOL 6.25 MG TAB PO SCH ×2 (07:24→21:14)
[2018-04-17] MEDS: APIXABAN 5 MG TABLET PO SCH ×2 (07:24→21:14)
[2018-04-17] MEDS: DOCUSATE SODIUM 50 MG/SENNA 8.6 MG TAB PO SCH ×2 (07:26→21:00)
[2018-04-17 07:47] LABS: AST (GOT) 37 U/L (15-37); BICARBONATE 20.6 MEQ/L (21.0-32.0); BLOOD UREA NITROGEN 37 MG/DL (7-18); CALCIUM 7.7 MG/DL (8.5-10.1); CHLORIDE 110 MEQ/L (98-107); CREATININE 2.21 MG/DL (0.60-1.30); GLOMERULAR FILTRATION RATE 29 ML/MIN (>89); GLUCOSE,RANDOM 129 MG/DL (74-106); SODIUM (NA) 140 MEQ/L (136-145)
[2018-04-17 07:50] LABS: ALKALINE PHOSPHATASE 84 U/L (45-117); ALT (GPT) 52 U/L (12-78); TOTAL BILIRUBIN ADULT 0.4 MG/DL (0.2-1.0); TOTAL PROTEIN 5.6 GM/DL (6.4-8.2)
[2018-04-17] MEDS ORDERED: DIATRIZOATE MEGLUM/DIATRIZOATE SOD 9 ML CUP PO ONE (12:00)
--- NOTE | 2018-04-17 12:55 | HHI.PR ---
Subjective Remarks Nursing denies any deterioration since last night. Feels even better than yesterday. Is slightly disappointed that thought that he might have longer hospital stay than expected when I informed him that his kidney function is improving slowly but surely. Objective Vital Signs Date Time Temp Pulse Resp B/P (MAP) Pulse Ox O2 Delivery O2 Flow Rate FiO2 04/17/18 12:00 97.1 68 20 118/65 (82) 100 04/17/18 08:00 97.4 59 18 109/55 (73) 100 04/17/18 04:07 81 04/17/18 04:00 98.0 64 18 115/62 (79) 95 04/17/18 00:00 98.1 62 18 110/60 (77) 95 04/16/18 23:55 75 04/16/18 20:00 97.9 63 18 109/57 (74) 99 04/16/18 16:00 97.6 75 18 101/58 (72) 99 I/O 04/16/18 04/16/18 04/16/18 04/17/18 04/17/18 04/17/18 07:00 15:00 23:00 07:00 15:00 23:00 Intake Total 0 ml 50 ml 530 ml 240 ml 50 ml Output Total 325 ml Balance 0 ml 50 ml 530 ml -85 ml 50 ml Intake Oral 0 ml 480 ml 240 ml IV Total 50 ml 50 ml 50 ml Output Urine Total 325 ml # Voids 3 5 3 # Bowel Movements 0 4 0 Result Diagram: 04/15/18 0547 04/17/18 0629 Objective Remarks Lungs are clear bilaterally Abdomen is soft, slightly firm, nontender Sitting up in chair, awake, alert, no acute distress A/P Assessment and Plan 77-year-old male admitted secondary to febrile illness with acute renal failure Bacteremia Klebsiella, Zosyn per infectious disease, repeat blood cultures are negative so far Infectious disease has ordered CT abdomen pelvis to help look for source, sensitive to Levaquin Acute renal failure Likely secondary to sepsis and dehydration Slowly improving with IV fluids, continue cautious hydration given CHF history Nausea Resolved, abdominal ultrasound unremarkable Thrombocytopenia This could be a viral reaction or secondary to sepsis Monitor CBC Atrial fibrillation Continue Eliquis Hyperlipidemia Continue present treatment Follow as an outpatient Diabetes mellitus type 2 Follow blood sugars Insulin sliding scale Diabetic diet Congestive heart failure Follow closely as we are IV hydrating this patient Continue home diuretic Cirrhosis History of CVA 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) DVT prophylaxis SCDs Ceferino Steve MD April 17, 2018 12:55
[2018-04-17] MEDS: SODIUM CHLOR 0.9% 1000 ML INJ 1,000 ML IV SCH (16:04)
--- NOTE | 2018-04-17 17:49 | RADRPT ---
EXAM DATE: 04/17/2018 5:26 PM EDT AGE/SEX: 77 years / Male INDICATIONS: Abdominal pain, evaluate abscess. CLINICAL DATA: This is the patient's initial encounter. Patient reports that signs and symptoms have been present for 1 day and indicates a pain score of 2/10. MEDICAL/SURGICAL HISTORY: Cardiovascular disease. Hypertension. Cirrhosis. Ulcer Cholecyste ctomy. RADIATION DOSE: 14.10 CTDI (mGy) COMPARISON: No prior [place] exams available for comparison. TECHNIQUE: Multiple contiguous axial images were obtained through the abdomen. Images were obtained using multiple row detector helical technique. Using dose reduction techniques, radiation dose was ke pt as low as reasonably achievable to obtain optimal diagnostic quality images. FINDINGS: The limited portion of lung base visualized demonstrates a small basilar effusion on the right. There are atelectatic changes within the right lower lobe. The appearance of the liver, spleen, pancreas, adrenal glands and kidneys is within normal limits. The visualized loops of small and large bowel in the upper abdomen are unremarkable. No free air or f ree fluid is seen. The abdominal aorta is normal in caliber. There is no retroperitoneal lymphadenopathy. There is no free fluid within the pelvis. No iliac or inguinal adenopathy is present. The loops of sm all and large bowel within the pelvis are unremarkable. The visualized bony structures demonstrate degenerative changes but are otherwise intact. CONCLUSION: 1. There is a small right basilar effusion and consolidative change in the right lower lobe. 2. No intra-abdominal abscess identified. Electronically signed by: Bradford Santos MD 04/17/2018 5:48 PM EDT
[2018-04-17] MEDS: ONDANSETRON ODT 4 MG TAB PO PRN (21:15)
[2018-04-18] VITALS (7 sets, daily range): BP systolic 104–133; BP diastolic 59–72; PULSE 70–84; RESP 16–18; TEMP 97.1–98; O2SAT 98–100
[2018-04-18] MEDS: PIPERACIL-TAZO 2.25 GM PREMIX 50 ML IV SCH (04:42)
[2018-04-18] MEDS: INSULIN ASPART SUPPLEMENTAL SCALE SQ SCH ×4 (08:00→21:00)
[2018-04-18] MEDS: TORSEMIDE 20 MG TAB PO SCH (08:52)
[2018-04-18] MEDS: DOCUSATE SODIUM 50 MG/SENNA 8.6 MG TAB PO SCH ×2 (08:53→20:59)
[2018-04-18] MEDS: APIXABAN 5 MG TABLET PO SCH ×2 (08:53→20:59)
[2018-04-18] MEDS: SODIUM CHLORIDE 0.9% FLUSH 10 ML FLUSH IV FLUSH SCH ×2 (08:54→21:00)
[2018-04-18] MEDS: CARVEDILOL 6.25 MG TAB PO SCH ×2 (08:54→20:59)
[2018-04-18] MEDS: ATORVASTATIN 20 MG TAB PO SCH (08:54)
[2018-04-18] MEDS: ALLOPURINOL 300 MG TAB PO SCH (08:54)
[2018-04-18] MEDS: LACTOBACILLUS ACIDOPHILUS TAB PO SCH ×3 (08:54→17:30)
--- NOTE | 2018-04-18 08:55 | HHI.IDPN ---
Subjective Subjective Remarks Patient is a 77-year-old male, presented to the hospital for further evaluation of nausea, abdominal discomfort, and weakness. His problem started about 4 days ago when he had an acute episode of vomiting. The following day he felt nauseated, and did not really feel like eating much or drinking much. His symptoms persisted, and 1 day prior to admission he started experiencing some abdominal discomfort. He did not have any further vomiting, and he has not had any diarrhea. He had noticed decreased any his urination because of poor p.o. intake. He has not noted any hematuria or any odor when he urinates. Denies any back pain. He denies any respiratory complaint. Because of the persistent symptoms, he called the ambulance and he was taken to the hospital. He had a fever in [facility]. His WBC is normal. 2 blood cultures were done in the ED and they are now reported as growing gram-negative johan. Patient last saw his primary care physician about 2 weeks ago, and everything looked okay at that time. Infectious disease consultation has been requested to evaluate the patient. Notes reviewed Temps ok Doing well No N/V No abdominal pain CT A/P ok No new (+) BC BC with Kleb oxytoca Creatinine lower LFT better Antibiotics Zosyn Current Medications Medications (Trade) Dose Ordered Sig/Abbie Route Start Time Stop Time Status Last Admin (NS Flush) 2 ml UNSCH PRN IV FLUSH 04/14/18 16:30 (NS Flush) 2 ml BID IV FLUSH 04/14/18 21:00 04/17/18 21:15 (Narcan Inj) 0.4 mg UNSCH PRN IV PUSH 04/14/18 16:30 (Anjali-Colace) 1 tab BID PO 04/14/18 21:00 04/15/18 07:30 (Milk Of Magnesia Liq) 30 ml Q12H PRN PO 04/14/18 16:30 (Senokot) 17.2 mg Q12H PRN PO 04/14/18 16:30 (Dulcolax Supp) 10 mg DAILY PRN RECTAL 04/14/18 16:30 (Lactulose Liq) 30 ml DAILY PRN PO 04/14/18 16:30 Sodium Chloride 1,000 ml @ 42 mls/hr [id number] IV 04/14/18 17:30 5/29/18 16:04 (D50w (Vial) Inj) 50 ml UNSCH PRN IV PUSH 04/14/18 18:00 (Glucagon Inj) 1 mg UNSCH PRN OTHER 04/14/18 18:00 (NovoLOG SUPPLEMENTAL SCALE) 1 ACHS SLIDING SCALE SQ 04/14/18 21:00 04/18/18 08:00 (Lactinex) 1 tab TID PO 04/14/18 18:00 04/17/18 16:30 (Zofran Odt) 4 mg Q6HR PRN PO 04/14/18 18:00 04/17/18 21:15 (Zyloprim) 300 mg DAILY PO 04/15/18 09:00 04/17/18 07:24 (Eliquis) 5 mg BID PO 04/14/18 21:00 04/17/18 21:14 (Lipitor) 20 mg DAILY PO 04/15/18 09:00 04/17/18 07:24 (Demadex) 20 mg DAILY PO 04/15/18 09:00 04/17/18 07:24 (Coreg) 6.25 mg Q12HR PO 04/15/18 09:00 04/17/18 21:14 Piperacillin Sod/ Tazobactam Sod 50 ml @ 100 mls/hr Q6H IV 04/15/18 22:00 04/18/18 04:42 Lines PIV no evidence of infection Past Medical History Atrial fibrillation Chronic anticoagulation (Eliquis) Hyperlipidemia Congestive heart failure Cirrhosis History of CVA Diabetes mellitus type 2 Hypertension 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) Empyema Past Surgical History Cholecystectomy Drainage of abdominal abscess Abdominal wound VAC Bilateral cataract surgery Tonsillectomy Tooth extractions Surgery for empyema Allergies: Coded Allergies: No Known Allergies (Unverified , 06/23/16) Objective . Vital Signs Date Time Temp Pulse Resp B/P (MAP) Pulse Ox O2 Delivery O2 Flow Rate FiO2 04/18/18 04:00 97.8 70 18 121/60 (80) 100 04/18/18 00:00 97.6 70 18 104/59 (74) 98 04/17/18 20:00 97.8 90 18 130/80 (97) 99 04/17/18 16:00 97.8 68 20 112/56 (74) 100 04/17/18 12:00 97.1 68 20 118/65 (82) 100 . Laboratory Tests Test 04/17/18 06:29 Blood Urea Nitrogen 37 MG/DL Creatinine 2.21 MG/DL Random Glucose 129 MG/DL Total Protein 5.6 GM/DL Albumin 2.0 GM/DL Calcium Level 7.7 MG/DL Alkaline Phosphatase 84 U/L Aspartate Amino Transf (AST/SGOT) 37 U/L Alanine Aminotransferase (ALT/SGPT) 52 U/L Total Bilirubin 0.4 MG/DL Sodium Level 140 MEQ/L Potassium Level 4.1 MEQ/L Chloride Level 110 MEQ/L Carbon Dioxide Level 20.6 MEQ/L Anion Gap 9 MEQ/L Estimat Glomerular Filtration Rate 29 ML/MIN Microbiology Date/Time Source Procedure Growth Status 04/15/18 14:55 Blood Peripheral Aerobic Blood Culture - Preliminary NO GROWTH IN 2 DAYS Resulted 04/15/18 14:55 Blood Peripheral Anaerobic Blood Culture - Preliminary NO GROWTH IN 2 DAYS Resulted 04/15/18 14:50 Blood Peripheral Aerobic Blood Culture - Preliminary NO GROWTH IN 2 DAYS Resulted 04/15/18 14:50 Blood Peripheral Anaerobic Blood Culture - Preliminary NO GROWTH IN 2 DAYS Resulted Imaging Last 72 hours Impressions Chest X-Ray 04/14/18 0000 Signed Impressions: CONCLUSION: No acute disease. Physical Exam GENERAL: awake and alert, not in respiratory distress. SKIN: Warm and dry. Has purpuric areas and ecchymoses in both UE HEAD: Atraumatic. Normocephalic. No temporal wasting, or tenderness. EYES: [place] conjunctiva. No petechia or hemorrhage. Pupils equal, round and reactive to light. Extraocular movements full and intact. No scleral icterus. No injection or drainage. EARS, NOSE AND THROAT: Nose without bleeding or purulent nasal discharge. No sinus tenderness. Mucous membranes pink and moist. No oral lesions noted. . NECK: Trachea midline. Supple and not tender, no meningeal signs CARDIOVASCULAR: Regular rate and rhythm. No murmurs, rubs or gallops heard RESPIRATORY: Clear to auscultation. Breath sounds equal bilaterally. No rales , wheezing or rhonchi ABDOMEN: Globular, distended, non-tender, bowel sounds present and normoactive. No guarding. No rebound. Scar C/W surgical history EXTREMITIES: No clubbing, cyanosis, or edema. No joint effusion, has good ROM. No calf tenderness. Has a large eschar on his distal R leg, no evidence of infection. NEUROLOGICAL: Awake and alert. Cranial nerves grossly intact. Motor grossly within normal limits. PSYCHIATRIC: Normal affect, calm and cooperative. LINE: No evidence of infection Assessment & Plan Remarks IMPRESSION Klebsiella sepsis source? - has elevated LFT, ?biliary source - has not impressive, ?, with obstruction Renal insufficiency, worse, due to poor po intake and sepsis Hx Empyema Prior cholecystectomy RECOMMENDATION Stop Zosyn PO Levaquin x 14 days Clinically doing well from ID standpoint OK for D/C from ID standpoint Explained plan to patient Elif Springer MD April 18, 2018 08:55
[2018-04-18] MEDS: LEVOFLOXACIN 250 MG TAB PO SCH (09:00)
--- NOTE | 2018-04-18 11:29 | HHI.PR ---
Subjective Remarks Tolerates by mouth antibiotics wants to go home. However this is not at baseline. Encourage p.o. intake and hydration. Feels tired and has a walker at home and she is also able to ambulate here with a walker. No chest pain or shortness of breath. No nausea or vomiting no diarrhea constipation. Objective Vitals Vital Signs Date Time Temp Pulse Resp B/P (MAP) Pulse Ox O2 Delivery O2 Flow Rate FiO2 04/18/18 10:32 71 04/18/18 08:00 97.9 75 16 115/66 (82) 100 04/18/18 04:00 97.8 70 18 121/60 (80) 100 04/18/18 00:00 97.6 70 18 104/59 (74) 98 04/17/18 20:00 97.8 90 18 130/80 (97) 99 04/17/18 16:00 97.8 68 20 112/56 (74) 100 04/17/18 12:00 97.1 68 20 118/65 (82) 100 I/O 04/17/18 04/17/18 04/17/18 04/18/18 04/18/18 04/18/18 07:00 15:00 23:00 07:00 15:00 23:00 Intake Total 240 ml 50 ml 2200 ml Output Total 325 ml Balance -85 ml 50 ml 2200 ml Intake Oral 240 ml 2200 ml IV Total 50 ml Output Urine Total 325 ml # Voids 3 4 # Bowel Movements 0 2 Result Diagram: 04/15/18 0547 04/17/18 0629 Imaging Last Impressions Abdomen/Pelvis CT 04/17/18 0000 Signed Impressions: CONCLUSION: 1. There is a small right basilar effusion and consolidative change in the rig ht lower lobe. 2. No intra-abdominal abscess identified. Abdomen Ultrasound 04/16/18 0000 Signed Impressions: CONCLUSION: 1. Status post cholecystectomy. 2. Small right renal cyst. 3. Kidneys are borderline echogenic which can be seen with medical renal disea se. 4. No intrahepatic biliary dilatation. 5. Pancreas not well seen. Chest X-Ray 04/14/18 0000 Signed Impressions: CONCLUSION: No acute disease. Objective Remarks GENERAL: Pleasant 77 yo male, appears in nad. CARDIOVASCULAR: Regular rate and rhythm. RESPIRATORY: No accessory muscle use. Clear to auscultation. Breath sounds equal bilaterally. GASTROINTESTINAL: Abdomen soft, non-tender, nondistended. Hepatic and splenic margins not palpable. MUSCULOSKELETAL: Extremities without clubbing, cyanosis, or edema. No obvious deformities. NEUROLOGICAL: Awake and alert. No obvious cranial nerve deficits. Motor grossly within normal limits. Five out of 5 muscle strength in the arms and legs. Normal speech. A/P Problem List: (1) Thrombocytopenia ICD Code: D69.6 - Thrombocytopenia, unspecified (2) Fever of unknown origin ICD Code: R50.9 - Fever, unspecified (3) Anemia ICD Code: D64.9 - Anemia, unspecified (4) Acute renal failure ICD Code: N17.9 - Acute kidney failure, unspecified Assessment and Plan 77-year-old male admitted secondary to febrile illness with acute renal failure Bacteremia Klebsiella, Zosyn per infectious disease, repeat blood cultures are negative so far Infectious disease has ordered CT abdomen pelvis to help look for source, sensitive to Levaquin Acute renal failure Likely secondary to sepsis and dehydration Slowly improving with IV fluids, continue cautious hydration given CHF history Nausea Resolved, abdominal ultrasound unremarkable Thrombocytopenia This could be a viral reaction or secondary to sepsis Monitor CBC Atrial fibrillation Continue Eliquis Hyperlipidemia Continue present treatment Follow as an outpatient Diabetes mellitus type 2 Follow blood sugars Insulin sliding scale Diabetic diet Congestive heart failure Follow closely as we are IV hydrating this patient Continue home diuretic Cirrhosis History of CVA 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) DVT prophylaxis SCDs eliquis DC plan: Antibiotics changed to PO. However kidney function is not back at his baseline. DC when Cr around 1.6. Monitor kidney function Discussed with the patient, nurse, Lupe Puente MD April 18, 2018 11:29
[2018-04-18 11:41] LABS: BICARBONATE 21.2 MEQ/L (21.0-32.0); CALCIUM 7.8 MG/DL (8.5-10.1); CREATININE 2.06 MG/DL (0.60-1.30)
[2018-04-18] MEDS: SODIUM CHLOR 0.9% 1000 ML INJ 1,000 ML IV SCH (17:32)
[2018-04-19 04:00] VITALS: BP 123/60; PULSE 83; RESP 20; TEMP 97.9; O2SAT 98
[2018-04-19 08:00] VITALS: BP 133/79; PULSE 81; RESP 16; TEMP 97.4; O2SAT 100
[2018-04-19] MEDS: INSULIN ASPART SUPPLEMENTAL SCALE SQ SCH (08:00)
[2018-04-19] MEDS: DOCUSATE SODIUM 50 MG/SENNA 8.6 MG TAB PO SCH (09:00)
[2018-04-19] MEDS: SODIUM CHLORIDE 0.9% FLUSH 10 ML FLUSH IV FLUSH SCH (09:00)
[2018-04-19] MEDS ORDERED: LEVA250T14 PO ×2 (09:00→09:02)
--- NOTE | 2018-04-19 09:02 | HHI.DS ---
Discharge Summary Admission Date April 14, 2018 at 16:32 Discharge Date: April 19, 2018 Admitting Diagnosis Sepsis, lactic acidosis (1) Thrombocytopenia ICD Code: D69.6 - Thrombocytopenia, unspecified (2) Fever of unknown origin ICD Code: R50.9 - Fever, unspecified (3) Anemia ICD Code: D64.9 - Anemia, unspecified (4) Acute renal failure ICD Code: N17.9 - Acute kidney failure, unspecified Procedures none Brief History - From Admission Mr. Levy is a 77-year-old male. He has CHF at baseline. He says for the past 3 days he has been having nausea and vomiting, fever, fatigue, chills, and sweats. He came into emergency department and when picked up by EMS was found to have a temperature 100.4. Etiology could be viral or bacterial. Bacterial etiology would be more suspect for gastroenteritis. Other findings include anemia and thrombocytopenia. He also has evidence of acute renal failure. Outpatient baseline status is not known for his creatinine level but past blood work shows that he ranges from 1.5-1.8 while in the hospital. Currently his creatinine level is 3.04. This acute renal failure could be related to dehydration but could also represent another pathology. He says he has not been eating or drinking well so this could be contributory to dehydration. No other complaints at this time. He has CHF at baseline and reports that this is usually under good control with his diuretics. He is not typically short of breath. He does not have CHF exacerbations in the recent past. He appears to have been taking his diuretic while having poor PO intake due to nausea. CBC/BMP: 04/15/18 0547 04/18/18 0947 Significant Findings Laboratory Tests Test 04/17/18 06:29 04/18/18 09:47 Blood Urea Nitrogen 37 MG/DL (7-18) 31 MG/DL (7-18) Creatinine 2.21 MG/DL (0.60-1.30) 2.06 MG/DL (0.60-1.30) Random Glucose 129 MG/DL (74-106) 146 MG/DL (74-106) Total Protein 5.6 GM/DL (6.4-8.2) Albumin 2.0 GM/DL (3.4-5.0) Calcium Level 7.7 MG/DL (8.5-10.1) 7.8 MG/DL (8.5-10.1) Chloride Level 110 MEQ/L (98-107) Carbon Dioxide Level 20.6 MEQ/L (21.0-32.0) Estimat Glomerular Filtration Rate 29 ML/MIN (>89) 31 ML/MIN (>89) Imaging Last Impressions Abdomen/Pelvis CT 04/17/18 0000 Signed Impressions: CONCLUSION: 1. There is a small right basilar effusion and consolidative change in the rig ht lower lobe. 2. No intra-abdominal abscess identified. Abdomen Ultrasound 04/16/18 0000 Signed Impressions: CONCLUSION: 1. Status post cholecystectomy. 2. Small right renal cyst. 3. Kidneys are borderline echogenic which can be seen with medical renal disea se. 4. No intrahepatic biliary dilatation. 5. Pancreas not well seen. Chest X-Ray 04/14/18 Signed Impressions: CONCLUSION: No acute disease. PE at Discharge GENERAL: Pleasant 77 yo male, appears in nad. CARDIOVASCULAR: Regular rate and rhythm. RESPIRATORY: No accessory muscle use. Clear to auscultation. Breath sounds equal bilaterally. GASTROINTESTINAL: Abdomen soft, non-tender, nondistended. Hepatic and splenic margins not palpable. MUSCULOSKELETAL: Extremities without clubbing, cyanosis, or edema. No obvious deformities. NEUROLOGICAL: Awake and alert. No obvious cranial nerve deficits. Motor grossly within normal limits. Five out of 5 muscle strength in the arms and legs. Normal speech. Pt update on day of discharge Feels better has good urine OP No [place] No fever or chills eating well Wants to go home Has an appointment with nephrology as OP Hospital Course 77-year-old male admitted secondary to febrile illness with acute renal failure Bacteremia Klebsiella, Zosyn per infectious disease, repeat blood cultures are negative so far Infectious disease has ordered CT abdomen pelvis to help look for source, sensitive to Levaquin Acute renal failure Likely secondary to sepsis and dehydration Slowly improving with IV fluids, continue cautious hydration given CHF history Nausea Resolved, abdominal ultrasound unremarkable Thrombocytopenia This could be a viral reaction or secondary to sepsis Monitor CBC Atrial fibrillation Continue Eliquis Hyperlipidemia Continue present treatment Follow as an outpatient Diabetes mellitus type 2 Follow blood sugars Insulin sliding scale Diabetic diet Congestive heart failure Follow closely as we are IV hydrating this patient Continue home diuretic Cirrhosis History of CVA 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) DVT prophylaxis SCDs eliquis DC plan: Antibiotics changed to PO. Kideny function also improving. Patient has an appointment with nephrology as OP for follow up. DC home in stable condition to follow up as OPwith pCP and consultants. Patient says he has a walker at home. Also doesn;t want home health at home. Pt Condition on Discharge: Stable Discharge Disposition: Discharge Home Discharge Time: > 30 minutes Discharge Instructions DIET: Follow Instructions for: Heart Healthy Diet, Diabetic Diet, Renal Failure Diet Activities you can perform: Regular-No Restrictions Follow up Referrals: Nephrology - 1 Week Informed patient to contact his insurance, to find a clinical coordinator in network. PCP Follow-up - 2-3 Days with Joann Hollis Jr., MD New Medications: Levofloxacin (Levaquin) 250 Mg Tablet 250 MG PO DAILY for infection , #13 TAB Continued Medications: Allopurinol (Zyloprim) 100 Mg Tab 300 MG PO DAILY for Gout, #30 TAB 0 Refills Apixaban (Eliquis) 5 Mg Tab 5 MG PO BID for Blood Clot Prevention, #60 TAB 0 Refills Atorvastatin (Atorvastatin) 20 Mg Tab 20 MG PO DAILY for Cholesterol Management, #30 TAB 0 Refills Carvedilol (Coreg) 6.25 Mg Tab 25 MG PO BID, #60 TAB 0 Refills Cholecalciferol (Vitamin D-3) 2,000 Unit Tab Irbesartan (Avapro) 150 Mg Tab 150 MG PO DAILY for Blood Pressure Management, #30 TAB 0 Refills Spironolactone (Aldactone) 25 Mg Tab 25 MG PO DAILY, #30 TAB 0 Refills Torsemide (Torsemide) 20 Mg Tab 20 MG PO DAILY, #30 TAB 0 Refills Lupe Fritz MD April 19, 2018 09:02
[2018-04-19 09:05] VITALS: PULSE 74
[2018-04-19] MEDS: ALLOPURINOL 300 MG TAB PO SCH (09:05)
[2018-04-19] MEDS: LACTOBACILLUS ACIDOPHILUS TAB PO SCH (09:05)
[2018-04-19] MEDS: LEVOFLOXACIN 250 MG TAB PO SCH (09:05)
[2018-04-19] MEDS: APIXABAN 5 MG TABLET PO SCH (09:06)
[2018-04-19] MEDS: TORSEMIDE 20 MG TAB PO SCH (09:06)
[2018-04-19] MEDS: CARVEDILOL 6.25 MG TAB PO SCH (09:06)
[2018-04-19] MEDS: ATORVASTATIN 20 MG TAB PO SCH (09:06)
== END 2018-04-19 13:11 | disposition home or self-care (01) | DRG 872 ==
LOC: NEPC 13:33 → NEDA 16:32 → N07B 17:08
PROVIDERS: ADMIT Hospitalist; ATTEND Hospitalist
DX: A41.9 Sepsis, unspecified organism (principal); N17.9 Acute kidney failure, unspecified; E87.2 Acidosis; D69.6 Thrombocytopenia, unspecified; E11.22 Type 2 diabetes mellitus with diabetic chronic kidney disease; E86.0 Dehydration; I50.9 Heart failure, unspecified; I13.0 Hypertensive heart and chronic kidney disease with heart failure and stage 1 through stage 4 chronic kidney disease, or unspecified chronic kidney disease; I48.91 Unspecified atrial fibrillation; K74.60 Unspecified cirrhosis of liver; R00.0 Tachycardia, unspecified; D64.9 Anemia, unspecified; N18.9 Chronic kidney disease, unspecified; E78.5 Hyperlipidemia, unspecified; I69.398 Other sequelae of cerebral infarction; R42 Dizziness and giddiness; Z90.49 Acquired absence of other specified parts of digestive tract; Z79.01 Long term (current) use of anticoagulants; Z83.3 Family history of diabetes mellitus; Z87.891 Personal history of nicotine dependence; Z82.49 Family history of ischemic heart disease and other diseases of the circulatory system; R65.20 Severe sepsis without septic shock
CPT/HCPCS: 71045; 74176; 76700; 80048; 80053; 81001; 82948; 83605; 83735; 84443; 85025; 85610; 85730; 87040; 87186; 87205; 93005; 96360; J0696; J1815; J2543; J3370; J7030; J7040; Q9963

== ENCOUNTER 2018-07-05 10:04 | Observation (INO) ==
[2018-07-05] MEDS ORDERED: Sod Chloride 0.9% Inj 1,000 ML IV.SIG ONE ×2 (10:49→12:28)
--- NOTE | 2018-07-05 11:09 | XR ---
EXAM DATE: 07/05/2018 11:05 AM EDT AGE/SEX: 77 years / Male INDICATIONS: . Weakness CLINICAL DATA: This is the patient's initial encounter. Patient reports that signs and symptoms have been present for 2 days and indicates a pain score of 0/10. MEDICAL/SURGICAL HISTORY: . Cardiovascular disease. Hypertension. Cirrhosis. . . Cholecystecto my COMPARISON: [facility], CHEST SINGLE AP, 04/14/2018. . FINDINGS: PA and lateral views of the chest demonstrate a normal-sized cardiac silhouette. There is no effusion , consolidation, or pneumothorax. The bones and soft tissues demonstrate no acute abnormality. There are degenerative changes of the thoracic spine with flowing anterior vertebral osteophytes. CONCLUSION: No acute cardiopulmonary abnormality is identified. Electronically signed by: Isra Juan MD 07/05/2018 11:08 AM EDT
[2018-07-05 11:44] LABS: Baso % (Auto) 0.3 % (0.0-2.0); Eos # (Auto) 0.3 th/mm3 (0.0-0.4); Eos % (Auto) 2.9 % (0.0-4.0); Hematocrit 28.2 % (39.0-51.0); Hemoglobin 9.2 gm/dL (13.0-17.0); Lymph # (Auto) 0.9 th/mm3 (1.0-4.8); Lymph % (Auto) 9.3 % (9.0-44.0); Mean Corpuscular HGB Conc 32.8 % (32.0-36.0); Mean Corpuscular Hemoglobin 30.6 pg (27.0-34.0); Mean Corpuscular Volume 93.2 fL (80.0-100.0); Mean Platelet Volume 7.4 fL (7.0-11.0); Mono # (Auto) 0.8 th/mm3 (0.0-0.9); Neut # (Auto) 8.1 th/mm3 (1.8-7.7); Neut % (Auto) 79.5 % (16.0-70.0); Platelet Count 231 th/mm3 (150-450); Red Blood Count 3.03 mil/mm3 (4.50-5.90); Red Cell Distribution Width 14.9 % (11.6-17.2); White Blood Count 10.2 th/mm3 (4.0-11.0)
[2018-07-05 11:59] LABS: Albumin 2.4 g/dL (3.4-5.0); Anion Gap 11 meq/L (5-15); Aspartate Aminotransferase 133 U/L (15-37); Blood Urea Nitrogen 52 mg/dL (7-18); Calcium 8.1 mg/dL (8.5-10.1); Carbon Dioxide 22.9 meq/L (21.0-32.0); Chloride 102 meq/L (98-107); Glomerular Filtration Rate 22 mL/min (>89); Glucose,Random 125 mg/dL (74-106); Potassium 3.9 meq/L (3.5-5.1); Sodium 136 meq/L (136-145)
[2018-07-05 12:03] LABS: Alanine Aminotransferase 153 U/L (12-78); Alkaline Phosphatase 374 U/L (45-117); Total Protein 7.4 g/dL (6.4-8.2)
[2018-07-05 12:05] LABS: Creatine Kinase 76 U/L (39-308)
[2018-07-05] MEDS ORDERED: Lidocaine PF 1% Inj 30 ML Vial INFILTRATN ONE (12:13)
[2018-07-05 13:08] LABS: Bacteria,Urine Rare /hpf; Bilirubin,Urine Negative (Negative); Clarity,Urine Clear (Clear); Color,Urine Yellow (Yellw/Straw); Glucose,Urine (UA) Negative (Negative); Hyaline Casts,Urine 4 /lpf (0-3); Leukocyte Esterase,Urine Negative (Negative); Nitrite,Urine Negative (Negative); Specific Gravity,Urine 1.006 (1.002-1.035); Squamous Epithelial Cell,Urine <1 /hpf (0-5)
[2018-07-05] MEDS ORDERED: Sodium Chlor 0.9% Inj 500 ML IV.CONT SCH (15:00)
[2018-07-05] MEDS ORDERED: Acetaminophen 325 MG Tablet PO PRN (15:00)
--- NOTE | 2018-07-05 17:43 | P.HPIM ---
History of Present Illness Primary Care Physician: Joann Hollis MD Chief Complaint: Weakness History of Present Illness: The patient is a 77-year-old male with past medical history of CVA and CHF who is presenting to the hospital with weakness and hypotension. The patient said that he went to go to get blood work this morning but he was found to have a blood pressure of 60/40. He was taken to the hospital by ambulance. He said he received fluids on the way and his blood pressure went up to the 90s. The patient was feeling weak when his blood pressure was low. The patient states that he was in the hospital in April for a bacterial infection in his blood. He said he did not figure out what the source of the infection was. He did complete a course of p.o. antibiotics. The patient says that over the past 4-5 days he has noticed his urine to change to a darker color. He does not notice any pain on urinating and is still urinating the usual amount. He has lost his appetite recently and did vomit for 5 days ago. He denies any fever. She has not had any diarrhea. He denies any shortness of breath or chest pain. He states he has chronic balance problems from his prior CVA. He states that recently he saw his kidney doctor and his diuretics were decreased at that time. The patient also states he had a fall a few days ago secondary to weakness. He says because he is on Eliquis he had a good amount of bleeding on his right arm from the wound. - Diagnosis (1) Weakness (2) Acute on chronic renal failure Review of Systems All other systems reviewed negative except as stated in HPI [facility] - History History Provided By: Patient - Medical History Medical History: Medical History (Last Updated 07/05/18 @ 17:40 by Dg Leone DO) A-fib Bacteremia CHF (congestive heart failure) Diabetes HBP (high blood pressure) High cholesterol History of drainage of abscess Stroke Vertigo - Surgical History Surgical History: Surgical History (Last Updated 07/05/18 @ 17:40 by Dg Leone DO) Hx of cholecystectomy Hx of tonsillectomy - Family History Family History: Family History (Last Updated 07/05/18 @ 17:41 by Dg Leone DO) Other CAD (coronary artery disease) - Tobacco History Second Hand Smoke Exposure: No Tobacco Use In Past 30 Days: No (quit 1973) Smoking Status: Former smoker Tobacco Type: Cigarettes - Alcohol History How Often Do You Have a Drink Containing Alcohol: 2 to 4 times a month - Substance Use History Substance History: No History of Abuse - Travel History Recent Travel in the [place] Within the Last 8 Weeks: No Recent Travel Out of the Country Within the Last 8 Weeks: No - Immunization History Tetanus Immunization: >5 Years Hx Influenza Vaccine This Season: No Medications and Allergies Active Medications: Active Medications Acetaminophen (Tylenol) 650 mg PO Q4H PRN PRN Reason: Temp > 100.4 Apixaban (Eliquis) 5 mg PO BID [facility] Atorvastatin Calcium (Lipitor) 20 mg PO DAILY [facility] Sodium Chloride (Ns Inj) 500 mls @ 30 mls/hr IV.CONT .[id number] VIANCA Stop: 07/06/18 07:39 Last Admin: 07/05/18 15:14 Dose: 30 mls/hr Sodium Chloride (Ns Flush) 2 ml IV.FLUSH PRN PRN PRN Reason: FLUSH AFTER USING IV ACCESS Last Admin: 07/05/18 11:05 Dose: 2 ml Vitamin D (Vitamin D3) 1,000 unit PO DAILY [facility] Allergies Allergy/AdvReac Type Severity Reaction Status Date / Time No Known Allergies Allergy Unverified 07/05/18 10:20 Home Medications Medication Instructions Recorded Confirmed Type allopurinol 150 mg PO DAILY 07/05/18 07/05/18 History apixaban [Eliquis] 5 mg PO BID 07/05/18 07/05/18 History atorvastatin 20 mg PO DAILY 07/05/18 07/05/18 History carvedilol [Coreg] 25 mg PO BID 07/05/18 07/05/18 History cholecalciferol (vitamin D3) 1,000 unit PO DAILY 07/05/18 07/05/18 History [Vitamin D3] irbesartan 150 mg PO DAILY 07/05/18 07/05/18 History spironolactone 12.5 mg PO DAILY 07/05/18 07/05/18 History torsemide 20 mg PO DAILY 07/05/18 07/05/18 History Exam Vital signs: Vital Signs 07/05/18 10:25 07/05/18 10:49 07/05/18 11:45 Temperature 97.9 F 97.7 F Pulse Rate 72 77 77 Respiratory Rate 18 18 Blood Pressure 93/46 L 109/66 Pulse Oximetry 100 99 72 L 07/05/18 13:00 07/05/18 15:25 07/05/18 16:00 Temperature 97.8 F 97.7 F 97.6 F Pulse Rate 77 76 93 H Respiratory Rate 18 16 Blood Pressure 154/58 H 127/77 104/59 L Pulse Oximetry 99 99 99 Intake & Output 07/04/18 07/05/18 07/05/18 18:59 06:59 18:59 Intake Total 1000 / 1000 Balance 1000 / 1000 Weight 81.647 kg Intake: IV 1000 / 1000 NS Inj 1,000 ML @ Wide Open IV. 1000 / 1000 SIG BOLUS ONE Rx#:[id number] Narrative: general: resting comfortably heent: NC, AT cardiac: distant heart sounds lungs: CTAB abdomen: nontender, +BS extremities: no edema neuro: no gross deficits psych: mood and affect appropriate Results - Labs CBC & Chem 7: 07/05/18 11:02 07/05/18 11:02 Labs: Short CBC 07/05/18 Range/Units 11:02 WBC 10.2 (4.0-11.0) th/mm3 Hgb 9.2 L (13.0-17.0) gm/dL Hct 28.2 L (39.0-51.0) % Plt Count 231 (150-450) th/mm3 BMP 07/05/18 11:02 Sodium 136 Potassium 3.9 Chloride 102 Carbon Dioxide 22.9 BUN 52 H Creatinine 2.79 H Calcium 8.1 L Cardiac Enzymes 07/05/18 07/05/18 Range/Units 11:02 14:40 Total Creatine Kinase 76 (39-308) U/L Troponin I Less than 0.02 L 0.02 (0.02-0.05) ng/mL Liver Function 07/05/18 Range/Units 11:02 Total Bilirubin 1.9 H (0.2-1.0) mg/dL AST 133 H (15-37) U/L ALT 153 H (12-78) U/L Alkaline Phosphatase 374 H (45-117) U/L Albumin 2.4 L (3.4-5.0) g/dL Urine 07/05/18 Range/Units 11:41 Urine Color Yellow (Yellw/Straw) Urine Clarity Clear (Clear) Urine pH 5.0 (5.0-8.5) Ur Specific [place] 1.006 (1.002-1.035) Urine Protein Negative (Neg-Trace) mg/dL Urine Glucose (UA) Negative (Negative) mg/dL - Imaging Impressions Chest X-Ray 07/05/18 10:49 CONCLUSION: No acute cardiopulmonary abnormality is identified. Caprini VTE Risk Assessment Caprini VTE Risk Assessment: Moderate/High Risk (score >= 2) Caprini Risk Assessment Model: Point Value = 1 Point Value = 2 Point Value = 3 Point Value = 5 Age 41-60 Minor surgery BMI > 25 kg/m2 Swollen legs Varicose veins or History of unexplained or recurrent spontaneous Oral contraceptives or hormone replacement Sepsis (< 1 month) Serious lung disease, including pneumonia (< 1 month) Abnormal pulmonary function Acute myocardial infarction Congestive heart failure (< 1 month) History of inflammatory bowel disease Medical patient at bed rest Age 61-74 Arthroscopic surgery Major open surgery (> 45 min) Laparoscopic surgery (> 45 min) Malignancy Confined to bed (> 72 hours) Immobilizing plaster cast Central venous access Age >= 75 History of VTE Family history of VTE Factor V Leiden Prothrombin [id number] Lupus anticoagulant Anticardiolipin antibodies Elevated serum homocysteine Heparin-induced thrombocytopenia Other congenital or acquired thrombophilia Stroke (< 1 month) Elective arthroplasty Hip, pelvis, or leg fracture Acute spinal cord injury (< 1 month) Prophylaxis Regimen: Total Risk Factor Score Risk Level Prophylaxis Regimen 0-1 Low Early ambulation 2 Moderate Order ONE of the following: *Sequential Compression Device (SCD) *Heparin 5000 units SQ BID 3-4 Higher Order ONE of the following medications: *Heparin 5000 units SQ TID *Enoxaparin/Lovenox 40 mg SQ daily (WT < 150 kg, CrCl > 30 mL/min) *Enoxaparin/Lovenox 30 mg SQ daily (WT < 150 kg, CrCl > 10-29 mL/min) *Enoxaparin/Lovenox 30 mg SQ BID (WT < 150 kg, CrCl > 30 mL/min) AND/OR *Sequential Compression Device (SCD) 5 or more Highest Order ONE of the following medications: *Heparin 5000 units SQ TID (Preferred with Epidurals) *Enoxaparin/Lovenox 40 mg SQ daily (WT < 150 kg, CrCl > 30 mL/min) *Enoxaparin/Lovenox 30 mg SQ daily (WT < 150 kg, CrCl > 10-29 mL/min) *Enoxaparin/Lovenox 30 mg SQ BID (WT < 150 kg, CrCl > 30 mL/min) AND *Sequential Compression Device (SCD) Assessment and Plan - Assessment (1) Weakness Code(s): R53.1 - Weakness Status: Acute (2) Acute on chronic renal failure Code(s): N17.9 - Acute kidney failure, unspecified; N18.9 - Chronic kidney disease, unspecified Status: Acute - Plan Weakness/ Hypotension Possibly s/t dehydration from diuretics. Also on blood pressure medications. Improved with IVFs. EKG without acute ischemia. Trops negative x 2. -continue gentle IVFs. -hold diuretics and blood pressure meds for now. -PT eval. -check TSH, B12 levels. -telemetry. Acute on chronic renal failure Likely exacerbated by diuretics. -hold diuretics. -gentle IVFs. -avoid nephrotoxins. Afib Rate controlled at this time. -resume Coreg if blood pressure remains stable. -continue Eliquis. Anemia Chronic. -follow CBC and transfuse as needed. Chronic systolic CHF Appears euvolemic. -monitor fluid status while giving IVFs. Bacteremia Recently completed treatment for klebsiella bacteremia. -would montoya culture if spikes fever. Currently afebrile and without leukocytosis. PPx: Eliquis Code Status: Full
--- NOTE | 2018-07-05 18:10 | ED ---
HPI General Chief complaint: Weakness Stated complaint: Low BP / [facility] Time Seen by Provider: 07/05/18 10:28 Source: patient, family and EMS Mode of arrival: EMS Limitations: no limitations History of Present Illness HPI Narrative: Patient is a 77-year-old male, past medical history significant for hyperlipidemia, diabetes, CHF, previous bacteremia, who presents with complaint of generalized weakness for several days to approximately 1 week. He states that approximately 3 days ago he had several days of nausea, vomiting, diarrhea that have since resolved. He has not had any vomiting or diarrhea in the last 3 days. He was seen by his primary care doctor whom ordered several lab studies and told him that his kidney function was worsening and was considering ordering a CT scan. Patient went back to the lab today where he was complaining of weakness at which time the lab called EMS. EMS reports that his blood pressure was in the 50s-60s systolic on their arrival without tachycardia. They gave him 1 L normal saline while in route and he improved immediately. Patient states that he is feeling better at this time and his only complaint is generalized weakness. He denies abdominal pain. Denies fever and chills. MD Complaint: generalized weakness Onset (ago): day(s) Duration: constant Location: generalized Migration: none Severity: mild Relieving factors: none Exacerbating factors: none Context: recent illness Related Data Home Medications Medication Instructions Recorded Confirmed allopurinol 150 mg PO DAILY 07/05/18 07/05/18 apixaban [Eliquis] 5 mg PO BID 07/05/18 07/05/18 atorvastatin 20 mg PO DAILY 07/05/18 07/05/18 carvedilol [Coreg] 25 mg PO BID 07/05/18 07/05/18 cholecalciferol (vitamin D3) 1,000 unit PO DAILY 07/05/18 07/05/18 [Vitamin D3] irbesartan 150 mg PO DAILY 07/05/18 07/05/18 spironolactone 12.5 mg PO DAILY 07/05/18 07/05/18 torsemide 20 mg PO DAILY 07/05/18 07/05/18 Allergies Allergy/AdvReac Type Severity Reaction Status Date / Time No Known Allergies Allergy Unverified 07/05/18 10:20 Review of Systems ROS: all other systems reviewed are negative Constitutional Reports poor appetite Eyes Denies blurry vision ENT Denies nasal congestion Cardiovascular Denies chest pain Respiratory Denies dyspnea Gastrointestinal Denies abdominal pain Genitourinary Denies flank pain Musculoskeletal Denies back pain Neurologic Denies headache(s) [facility] Medical History Medical History A-fib (Acute) Bacteremia (Acute) CHF (congestive heart failure) (Acute) Diabetes (Acute) HBP (high blood pressure) (Acute) High cholesterol (Acute) History of drainage of abscess (Acute) Stroke (Acute) Vertigo (Acute) Surgical History Surgical History Hx of cholecystectomy (Acute) Hx of tonsillectomy (Acute) Family History Family History Other CAD (coronary artery disease) Social History Social History Substance History: No History of Abuse Second Hand Smoke Exposure: No Smoking Status: Former smoker Tobacco Type: Cigarettes How Often Do You Have a Drink Containing Alcohol: 2 to 4 times a month Recent Travel in [facility] within the Last 8 Weeks: No Recent Out of Country Travel within the Last 8 Weeks: No Immunization History Tetanus Immunization: >5 Years Hx Influenza Vaccine This Season: No Exam Narrative Exam Narrative: GENERAL: Well-appearing male in no acute distress SKIN: Focused skin assessment warm/dry. No rashes. Skin tear on right elbow. HEAD: Atraumatic. Normocephalic. EYES: Pupils equal and round. No scleral icterus. No injection or drainage. ENT: No nasal bleeding or discharge. Mucous membranes pink and dry. NECK: Trachea midline. No JVD. CARDIOVASCULAR: Regular rate and rhythm. No murmur appreciated. RESPIRATORY: No accessory muscle use. Clear to auscultation. Breath sounds equal bilaterally. GASTROINTESTINAL: Abdomen soft, non-tender, nondistended. Hepatic and splenic margins not palpable. MUSCULOSKELETAL: No obvious deformities. No clubbing. No cyanosis. No edema. NEUROLOGICAL: Awake and alert. No obvious cranial nerve deficits. Motor grossly within normal limits. Normal speech. PSYCHIATRIC: Appropriate mood and affect; insight and judgment normal. Course Initial Documented Vital Signs Temperature 97.9 F 07/05/18 10:25 Pulse Rate 72 07/05/18 10:25 Respiratory Rate 18 07/05/18 10:25 Blood Pressure 93/46 L 07/05/18 10:25 Pulse Oximetry 100 07/05/18 10:25 Last Documented Vital Signs Temperature 97.6 F 07/05/18 16:00 Pulse Rate 93 H 07/05/18 16:00 Respiratory Rate 16 07/05/18 15:25 Blood Pressure 104/59 L 07/05/18 16:00 Pulse Oximetry 99 07/05/18 16:00 Medical Decision Making MDM Narrative Medical decision making narrative: Patient presents with complaint of several days of weakness after he had 3 days of nausea, vomiting, diarrhea that have resolved. His blood pressure on arrival was in the 90s-100s and continued to improve after he was given another liter of normal saline bolus. He denies complaints other than generalized weakness and decreased appetite. He is able to tolerate oral intake. EKG is without acute ischemic changes. Labs consistent with dehydration and slight worsening of renal function but not enough to be an acute kidney injury. No leukocytosis nor fever. I discussed the findings with the patient and his family member at which time the patient was okay with going home but his family member didn't feel comfortable with him going home. I then discussed the case with Dr. Leone, hospitalist on-call, who agreed to an observation overnight. Medical Screen Exam Complete: Yes Emergency Medical Condition: Yes Differential Diagnosis Differential Diagnosis: Differential includes but is not limited to dehydration , acute renal failure, vasovagal near syncope. Medical Records Medical records reviewed: Yes I reviewed the patient's medical records. Lab Data Lab results reviewed: Yes I reviewed the patient's lab results. Lab results narrative: Labs show slight worsening of renal function consistent with dehydration. No leukocytosis. Result diagrams: 07/05/18 11:02 07/05/18 11:02 Lab Results 07/05/18 07/05/18 07/05/18 Range/Units 11:02 11:02 11:41 WBC 10.2 (4.0-11.0) th/mm3 RBC 3.03 L (4.50-5.90) mil/mm3 Hgb 9.2 L (13.0-17.0) gm/dL Hct 28.2 L (39.0-51.0) % MCV 93.2 (80.0-100.0) fL MCH 30.6 (27.0-34.0) pg MCHC 32.8 (32.0-36.0) % RDW 14.9 (11.6-17.2) % Plt Count 231 (150-450) th/mm3 MPV 7.4 (7.0-11.0) fL Neut % (Auto) 79.5 H (16.0-70.0) % Lymph % (Auto) 9.3 (9.0-44.0) % [place] % (Auto) 8.0 (0.0-8.0) % Eos % (Auto) 2.9 (0.0-4.0) % Baso % (Auto) 0.3 (0.0-2.0) % Neut # (Auto) 8.1 H (1.8-7.7) th/mm3 Lymph # (Auto) 0.9 L (1.0-4.8) th/mm3 Marshall # (Auto) 0.8 (0.0-0.9) th/mm3 Eos # (Auto) 0.3 (0.0-0.4) th/mm3 Baso # (Auto) 0.0 (0.0-0.2) th/mm3 WBC Differential . Differential Comment Auto diff final Sodium 136 (136-145) meq/L Potassium 3.9 (3.5-5.1) meq/L Chloride 102 (98-107) meq/L Carbon Dioxide 22.9 (21.0-32.0) meq/L Anion Gap 11 (5-15) meq/L BUN 52 H (7-18) mg/dL Creatinine 2.79 H (0.60-1.30) mg/dL Estimated GFR 22 L (>89) mL/min Random Glucose 125 H (74-106) mg/dL Calcium 8.1 L (8.5-10.1) mg/dL Total Bilirubin 1.9 H (0.2-1.0) mg/dL AST 133 H (15-37) U/L ALT 153 H (12-78) U/L Alkaline Phosphatase 374 H (45-117) U/L Total Creatine Kinase 76 (39-308) U/L Troponin I Less than 0.02 L (0.02-0.05) ng/mL Total Protein 7.4 (6.4-8.2) g/dL Albumin 2.4 L (3.4-5.0) g/dL Urine Color Yellow (Yellw/Straw) Urine Clarity Clear (Clear) Urine pH 5.0 (5.0-8.5) Ur Specific [place] 1.006 (1.002-1.035) Urine Protein Negative (Neg-Trace) mg/dL Urine Glucose (UA) Negative (Negative) mg/dL Urine Ketones Negative (Negative) mg/dL Urine Occult Blood Negative (Negative) Urine Nitrate Negative (Negative) Urine Bilirubin Negative (Negative) Urine Urobilinogen Less than 2 (Less than 2) mg/dL Ur Leukocyte Esterase Negative (Negative) Urine WBC 1 (0-5) /hpf Ur Squamous Epith Cells <1 (0-5) /hpf Urine Bacteria Rare H (None) /hpf Hyaline Casts 4 (0-3) /lpf Micro UA Comment Culture not ind Urine Culture Comments Culture not ind 07/05/18 Range/Units 14:40 WBC (4.0-11.0) th/mm3 RBC (4.50-5.90) mil/mm3 Hgb (13.0-17.0) gm/dL Hct (39.0-51.0) % MCV (80.0-100.0) fL MCH (27.0-34.0) pg MCHC (32.0-36.0) % RDW (11.6-17.2) % Plt Count (150-450) th/mm3 MPV (7.0-11.0) fL Neut % (Auto) (16.0-70.0) % Lymph % (Auto) (9.0-44.0) % [place] % (Auto) (0.0-8.0) % Eos % (Auto) (0.0-4.0) % Baso % (Auto) (0.0-2.0) % Neut # (Auto) (1.8-7.7) th/mm3 Lymph # (Auto) (1.0-4.8) th/mm3 Marshall # (Auto) (0.0-0.9) th/mm3 Eos # (Auto) (0.0-0.4) th/mm3 Baso # (Auto) (0.0-0.2) th/mm3 WBC Differential Differential Comment Sodium (136-145) meq/L Potassium (3.5-5.1) meq/L Chloride (98-107) meq/L Carbon Dioxide (21.0-32.0) meq/L Anion Gap (5-15) meq/L BUN (7-18) mg/dL Creatinine (0.60-1.30) mg/dL Estimated GFR (>89) mL/min Random Glucose (74-106) mg/dL Calcium (8.5-10.1) mg/dL Total Bilirubin (0.2-1.0) mg/dL AST (15-37) U/L ALT (12-78) U/L Alkaline Phosphatase (45-117) U/L Total Creatine Kinase (39-308) U/L Troponin I 0.02 (0.02-0.05) ng/mL Total Protein (6.4-8.2) g/dL Albumin (3.4-5.0) g/dL Urine Color (Yellw/Straw) Urine Clarity (Clear) Urine pH (5.0-8.5) Ur Specific [place] (1.002-1.035) Urine Protein (Neg-Trace) mg/dL Urine Glucose (UA) (Negative) mg/dL Urine Ketones (Negative) mg/dL Urine Occult Blood (Negative) Urine Nitrate (Negative) Urine Bilirubin (Negative) Urine Urobilinogen (Less than 2) mg/dL Ur Leukocyte Esterase (Negative) Urine WBC (0-5) /hpf Ur Squamous Epith Cells (0-5) /hpf Urine Bacteria (None) /hpf Hyaline Casts (0-3) /lpf Micro UA Comment Urine Culture Comments Imaging Data Attestation: I personally reviewed and interpreted this imaging study as follows : My impression: No acute cardiopulmonary process. Radiologist's impression: Chest X-Ray 07/05/18 10:49 CONCLUSION: No acute cardiopulmonary abnormality is identified. ECG Data EKG Prior to Arrival: No Attestation: I personally reviewed and interpreted this ECG as follows: (Sinus rhythm at a rate of 72 bpm. T wave flattening in lead III and aVF but no other ST or T wave changes.) Discharge Plan Discharge Disposition Patient Disposition: 30 Still Patient Discharge Condition Condition: Stable Discharge Details Diagnosis: Weakness, Dehydration Physicians Team ED Provider: Yara Avalos Primary Care Provider: Joann Hollis Attending Provider: Dg Leone Discharge Interventions Interventions: ED Discharge Assessment Last Done: 07/05/18 15:25 Vital Signs Last Done: 07/05/18 16:00 Status ED Status: Left Department Discharge Information Discharge Date/Time: 07/05/18 15:25
[2018-07-05 19:07] LABS: Thyroid Stimulating Hormone 0.618 uIU/mL (0.358-3.740)
[2018-07-06 09:00] LABS: Baso # (Auto) 0.1 th/mm3 (0.0-0.2); Baso % (Auto) 0.7 % (0.0-2.0); Eos # (Auto) 0.4 th/mm3 (0.0-0.4); Eos % (Auto) 4.1 % (0.0-4.0); Hematocrit 29.9 % (39.0-51.0); Hemoglobin 9.8 gm/dL (13.0-17.0); Lymph # (Auto) 1.4 th/mm3 (1.0-4.8); Lymph % (Auto) 15.2 % (9.0-44.0); Mean Corpuscular HGB Conc 32.7 % (32.0-36.0); Mean Corpuscular Hemoglobin 30.4 pg (27.0-34.0); Mean Corpuscular Volume 92.9 fL (80.0-100.0); Mean Platelet Volume 7.8 fL (7.0-11.0); Mono # (Auto) 0.8 th/mm3 (0.0-0.9); Mono % (Auto) 8.7 % (0.0-8.0); Neut # (Auto) 6.4 th/mm3 (1.8-7.7); Neut % (Auto) 71.3 % (16.0-70.0); Platelet Count 254 th/mm3 (150-450); Red Blood Count 3.22 mil/mm3 (4.50-5.90); Red Cell Distribution Width 15.2 % (11.6-17.2)
[2018-07-06 09:26] LABS: Alanine Aminotransferase 141 U/L (12-78); Albumin 2.2 g/dL (3.4-5.0); Anion Gap 10 meq/L (5-15); Aspartate Aminotransferase 130 U/L (15-37); Blood Urea Nitrogen 46 mg/dL (7-18); Calcium 8.3 mg/dL (8.5-10.1); Carbon Dioxide 21.1 meq/L (21.0-32.0); Chloride 108 meq/L (98-107); Glomerular Filtration Rate 28 mL/min (>89); Glucose,Random 111 mg/dL (74-106); Potassium 3.4 meq/L (3.5-5.1); Sodium 139 meq/L (136-145)
[2018-07-06 09:29] LABS: Alkaline Phosphatase 373 U/L (45-117); Total Protein 6.5 g/dL (6.4-8.2)
--- NOTE | 2018-07-06 11:36 | P.DS ---
Date of admission: 07/05/18 13:46 Primary care physician: Joann Hollis MD Brief History from admission: The patient is a 77-year-old male with past medical history of CVA and CHF who is presenting to the hospital with weakness and hypotension. The patient said that he went to go to get blood work this morning but he was found to have a blood pressure of 60/40. He was taken to the hospital by ambulance. He said he received fluids on the way and his blood pressure went up to the 90s. The patient was feeling weak when his blood pressure was low. The patient states that he was in the hospital in April for a bacterial infection in his blood. He said he did not figure out what the source of the infection was. He did complete a course of p.o. antibiotics. The patient says that over the past 4-5 days he has noticed his urine to change to a darker color. He does not notice any pain on urinating and is still urinating the usual amount. He has lost his appetite recently and did vomit for 5 days ago. He denies any fever. She has not had any diarrhea. He denies any shortness of breath or chest pain. He states he has chronic balance problems from his prior CVA. He states that recently he saw his kidney doctor and his diuretics were decreased at that time. The patient also states he had a fall a few days ago secondary to weakness. He says because he is on Eliquis he had a good amount of bleeding on his right arm from the wound. DS: Summary Hospital Course: Mr. Levy is a 77-year-old male. He is admitted secondary to dehydration. Dehydration was precipitated by what may have been a gastroenteritis. He said he vomited 5 days ago and did not have much of an appetite since. She was admitted with hypotension and acute kidney injury on top of chronic kidney injury. This morning after IV hydration is feeling back to baseline. No complaints today. Renal function is back to baseline. Appetite is present. Patient is medically stable and cleared for discharge back to home. - Time Spent with Patient Total time spent providing and/or coordinating discharge services: Less than 30 minutes - Quality: VTE Deep Vein Thrombosis/Pulmonary Embolism Present on Admission: No Exam Vital signs: Vital Signs 07/05/18 11:45 07/05/18 13:00 07/05/18 15:25 Temperature 97.7 F 97.8 F 97.7 F Pulse Rate 77 77 76 Respiratory Rate 18 18 16 Blood Pressure 109/66 154/58 H 127/77 Pulse Oximetry 72 L 99 99 07/05/18 16:00 07/05/18 19:48 07/05/18 20:18 Temperature 97.6 F 97.8 F Pulse Rate 93 H 87 Respiratory Rate 21 Blood Pressure 104/59 L 108/65 Pulse Oximetry 99 95 95 07/06/18 00:00 07/06/18 04:00 07/06/18 08:00 Temperature 97.8 F 98.2 F 97.4 F L Pulse Rate 72 70 67 Respiratory Rate 22 22 18 Blood Pressure 109/56 L 123/59 L 135/63 Pulse Oximetry 96 98 98 Intake & Output 07/05/18 07/06/18 07/06/18 18:59 06:59 18:59 Intake Total 1000 / 1000 1000 / 1000 Output Total 425 / 425 1300 / 1300 Balance 575 / 575 -300 / -300 Weight 81.647 kg Intake: IV 1000 / 1000 1000 / 1000 NS Inj 1,000 ML @ Wide Open IV. 1000 / 1000 1000 / 1000 SIG BOLUS ONE Rx#:[id number] Output: Urine 425 / 425 1300 / 1300 Other: Date of Last Bowel Movement 07/04/18 Results Procedures completed during hospitalization: none Labs on day of discharge: Labs from last 24 hours 07/06/18 07/06/18 07/06/18 08:45 07:57 07:56 WBC 9.0 RBC 3.22 L Hgb 9.8 L Hct 29.9 L MCV 92.9 MCH 30.4 MCHC 32.7 RDW 15.2 Plt Count 254 MPV 7.8 Neut % (Auto) 71.3 H Lymph % (Auto) 15.2 [place] % (Auto) 8.7 H Eos % (Auto) 4.1 H Baso % (Auto) 0.7 Neut # (Auto) 6.4 Lymph # (Auto) 1.4 [place] # (Auto) 0.8 Eos # (Auto) 0.4 Baso # (Auto) 0.1 WBC Differential . Differential Comment Auto diff final Sodium 139 Potassium 3.4 L Chloride 108 H Carbon Dioxide 21.1 Anion Gap 10 BUN 46 H Creatinine 2.30 H Estimated GFR 28 L POC Glucose 115 H Random Glucose 111 H Calcium 8.3 L Total Bilirubin 1.4 H AST 130 H ALT 141 H Alkaline Phosphatase 373 H Total Creatine Kinase Troponin I Total Protein 6.5 D Albumin 2.2 L Vitamin B12 TSH Urine Color Urine Clarity Urine pH Ur Specific [place] Urine Protein Urine Glucose (UA) Urine Ketones Urine Occult Blood Urine Nitrate Urine Bilirubin Urine Urobilinogen Ur Leukocyte Esterase Urine WBC Ur Squamous Epith Cells Urine Bacteria Hyaline Casts Micro UA Comment Urine Culture Comments 07/05/18 07/05/18 07/05/18 21:05 20:50 14:40 WBC RBC Hgb Hct MCV MCH MCHC RDW Plt Count MPV Neut % (Auto) Lymph % (Auto) [place] % (Auto) Eos % (Auto) Baso % (Auto) Neut # (Auto) Lymph # (Auto) [place] # (Auto) Eos # (Auto) Baso # (Auto) WBC Differential Differential Comment Sodium Potassium Chloride Carbon Dioxide Anion Gap BUN Creatinine Estimated GFR POC Glucose 190 H Random Glucose Calcium Total Bilirubin AST ALT Alkaline Phosphatase Total Creatine Kinase Troponin I 0.03 Total Protein Albumin Vitamin B12 650 TSH 0.618 Urine Color Urine Clarity Urine pH Ur Specific [place] Urine Protein Urine Glucose (UA) Urine Ketones Urine Occult Blood Urine Nitrate Urine Bilirubin Urine Urobilinogen Ur Leukocyte Esterase Urine WBC Ur Squamous Epith Cells Urine Bacteria Hyaline Casts Micro UA Comment Urine Culture Comments 07/05/18 07/05/18 07/05/18 14:40 11:41 11:02 WBC RBC Hgb Hct MCV MCH MCHC RDW Plt Count MPV Neut % (Auto) Lymph % (Auto) [place] % (Auto) Eos % (Auto) Baso % (Auto) Neut # (Auto) Lymph # (Auto) [place] # (Auto) Eos # (Auto) Baso # (Auto) WBC Differential Differential Comment Sodium 136 Potassium 3.9 Chloride 102 Carbon Dioxide 22.9 Anion Gap 11 BUN 52 H Creatinine 2.79 H Estimated GFR 22 L POC Glucose Random Glucose 125 H Calcium 8.1 L Total Bilirubin 1.9 H AST 133 H ALT 153 H Alkaline Phosphatase 374 H Total Creatine Kinase 76 Troponin I 0.02 Less than 0.02 L Total Protein 7.4 Albumin 2.4 L Vitamin B12 TSH Urine Color Yellow Urine Clarity Clear Urine pH 5.0 Ur Specific [place] 1.006 Urine Protein Negative Urine Glucose (UA) Negative Urine Ketones Negative Urine Occult Blood Negative Urine Nitrate Negative Urine Bilirubin Negative Urine Urobilinogen Less than 2 Ur Leukocyte Esterase Negative Urine WBC 1 Ur Squamous Epith Cells <1 Urine Bacteria Rare H Hyaline Casts 4 Micro UA Comment Culture not ind Urine Culture Comments Culture not ind 07/05/18 11:02 WBC 10.2 RBC 3.03 L Hgb 9.2 L Hct 28.2 L MCV 93.2 MCH 30.6 MCHC 32.8 RDW 14.9 Plt Count 231 MPV 7.4 Neut % (Auto) 79.5 H Lymph % (Auto) 9.3 [place] % (Auto) 8.0 Eos % (Auto) 2.9 Baso % (Auto) 0.3 Neut # (Auto) 8.1 H Lymph # (Auto) 0.9 L [place] # (Auto) 0.8 Eos # (Auto) 0.3 Baso # (Auto) 0.0 WBC Differential . Differential Comment Auto diff final Sodium Potassium Chloride Carbon Dioxide Anion Gap BUN Creatinine Estimated GFR POC Glucose Random Glucose Calcium Total Bilirubin AST ALT Alkaline Phosphatase Total Creatine Kinase Troponin I Total Protein Albumin Vitamin B12 TSH Urine Color Urine Clarity Urine pH Ur Specific [place] Urine Protein Urine Glucose (UA) Urine Ketones Urine Occult Blood Urine Nitrate Urine Bilirubin Urine Urobilinogen Ur Leukocyte Esterase Urine WBC Ur Squamous Epith Cells Urine Bacteria Hyaline Casts Micro UA Comment Urine Culture Comments - Impressions ITS Impressions Chest X-Ray 07/05/18 10:49 CONCLUSION: No acute cardiopulmonary abnormality is identified. Discharge Plan - Discharge Disposition Patient Disposition: 01 Discharge Home - Discharge Condition Condition: Stable - Discharge Order Discharge Orders: Discharge Order (Routine); Ordered 07/06/18 Ordered By: Bradford Thomas - Discharge Details Anticipated Discharge Date: 07/06/18 - Physicians Team Primary Care Provider: Joann Hollis Attending Provider: Bradford Thomas
--- NOTE | 2018-07-06 12:30 | ECG ---
Date Performed: 07/05/2018 Time Performed: 11:22:47 PTAGE: 77 years EKG: Sinus rhythm SLIGHT T-WAVE FLATTENING WITH SLIGHT IMPROVEMENT OF ST-T ABNORMALITIES FROM PRIOR TRACING. NONSPECIF IC T-WAVE ABNORMALITY BORDERLINE ECG PREVIOUS TRACING : 04/14/2018 14.13 DOCTOR: Moy Oswald Interpretating Date/Time 07/06/2018 12:30:01
--- NOTE | 2018-07-06 12:31 | ECG ---
Date Performed: 07/05/2018 Time Performed: 19:44:58 PTAGE: 77 years EKG: NORMAL Sinus rhythm PVCs ABNORMAL RHYTHM ECG Since PREVIOUS TRACING , no significant change noted PREVIOUS TRACING DOCTOR: Myo Oswald Interpretating Date/Time 07/06/2018 12:30:22
== END 2018-07-06 12:17 | disposition home or self-care (01) ==
LOC: NEDA 10:04 → NEPE 10:04 → NEPHCDU 10:04 → NEDA 15:25 → NEPHCDU 16:06
PROVIDERS: ADMIT Hospitalist; ATTEND Hospitalist